=== PATIENT | male | born 1970 | race Caucasian/White ===

== ENCOUNTER 2016-09-27 13:58 | Emergency (ER) | payer BC ==
[~2016-09-27] VITALS: Ht 172.7 cm; Wt 122.0 kg
[~2016-09-27 13:58] MED LIST: ALBU1AER9 INH; ALLO300T2 PO; DIPH1TAB PO; LISI-725 PO; MONT1TAB3 PO; MULT-513 PO; POTA1080 PO
[2016-09-27 14:09] VITALS: TEMP 36.3; Ht 172.7 cm; Wt 122.0 kg
[2016-09-27] MEDS ORDERED: SODIUM CHLORIDE 0.9% 1000ML 1,000 ML IV STA ×2 (14:33)
[2016-09-27] MEDS ORDERED: ONDANSETRON INJ 2 MG/ML 2 ML VIAL IV STA (14:33)
[2016-09-27] MEDS ORDERED: KETOROLAC TROMETHAMINE 30 MG/ML VIAL IV STA (14:33)
[2016-09-27 14:41] LABS: BASO % 1.2 %; BASO ABS # 0.13 K/uL (0-0.2); COMPLETE YES; EOS % 4.3 %; HEMATOCRIT 44.6 % (42-52); IG% 0.2 %; LYMPH % 14.2 %; LYMPH ABS # 1.57 K/uL (1.2-3.4); MEAN CELL VOLUME 92.1 fL (80-100); MEAN CORPUSCULAR HEMOGLOBIN 32.9 pg (25-34); MEAN CORPUSCULAR HGB CONC 35.7 g/dl (32-36); MEAN PLATELET VOLUME 9.5 fL (7.4-10.4); MONO % 8.1 %; PLATELET COUNT 222 K/uL (130-400); RED BLOOD COUNT 4.84 M/uL (4.7-6.1); WHITE BLOOD COUNT 11.04 K/uL (4.8-10.8)
--- NOTE | 2016-09-27 14:41 | EMERGENCY ROOM VISIT NOTE ---
History Report prepared by Dmitry: Jose Guadalupe Alva Under the Supervision of: Dr. Rick Garrido D.O. First contact with patient: 14:25 Chief Complaint: KIDNEY STONE Stated Complaint: POSSIBLE KIDNEY STONE History of Present Illness The patient is a 45 year old male who presents to the Emergency Room with complaints of persistent left flank pain since 0600 this morning. The pain is consistent with past kidney stones, and is rated 10/10 in severity. The patient' s last stone was last year. The patient follows up with Dr. Hassan, who he hasn' t seen in approximately 6 months. The patient has had stents for his kidney stones before, but he usually passes the stones on his own. The patient had lithotripsy approximately five months ago, and has been taking his leftover pain medication for his flank pain. Source of History: patient Onset: 0600 this morning Position: back (left flank) Symptom Intensity: 10/10 Quality: other (kidney stone) Timing: other (persistent) Review of Systems See HPI for pertinent positives & negatives. A total of 10 systems reviewed and were otherwise negative. Past Medical & Surgical Medical Problems: (1) Asthma (2) HTN (hypertension) Surgical Problems: (1) H/O colostomy Family History Cancer Heart disease Hypertension Kidney stones Social History Smoking Status: Never Smoker Drug Use: none Marital Status: Housing Status: lives with family Occupation Status: employed Current/Historical Medications Scheduled Allopurinol (Zyloprim), 300 MG PO QAM Lisinopril (Zestril), 20 MG PO QAM Montelukast Sodium (Singulair), 10 MG PO QAM Multivitamins/Minerals (Mvi With Minerals), 1 TAB PO QAM Potassium Citrate (Alkalinizer (Potassium Citrate ER), 1,080 MG PO QAM Tamsulosin Hcl (Flomax), 0.4 MG PO DAILY Scheduled PRN Albuterol (Proair Hfa), 2 PUFFS INH DAILY PRN for Shortness of Breath Diphenhydramine Hcl (Benadryl Allergy), 1 CAP PO QAM PRN for ALLERGIC REACTION Oxycodone Immediate Rel Tab (Roxicodone Ir), 1-2 TAB PO Q4H PRN for Severe Pain Allergies Coded Allergies: Morphine (Verified Allergy, Intermediate, itchy anxious, 09/27/16) Physical Exam Vital Signs Date Time Temp Pulse Resp B/P Pulse Ox O2 Delivery O2 Flow Rate FiO2 09/27/16 17:32 77 20 147/78 98 Room Air 09/27/16 15:19 69 20 154/82 99 Room Air 09/27/16 14:09 36.3 50 18 149/91 99 Room Air Physical Exam GENERAL: Patient is awake, alert, very anxious, appears to be uncomfortable. EYES: The conjunctivae are clear. The pupils are round and reactive. EARS, NOSE, MOUTH AND THROAT: The nose is without any evidence of any deformity. Mucous membranes are moist tongue is midline NECK: The neck is nontender and supple. RESPIRATORY: Normal respiratory effort is noted there is no evidence of wheezing rhonchi or rales CARDIOVASCULAR: Regular rate and rhythm noted there no murmurs rubs or gallops normal S1 normal S2 GASTROINTESTINAL: The abdomen is soft. Bowel sounds are present in all quadrants. Abdomen is nontender BACK: Left CVA tenderness to percussion, no midline tenderness appreciated. MUSCULOSKELETAL/EXTREMITIES: There is no evidence of gross deformity full range of motion is noted in the hips and shoulders SKIN: There is no obvious evidence of any rash. There are no petechiae, pallor or cyanosis noted. NEUROLOGIC: Patient is awake alert and oriented x3. Medical Decision & Procedures ER Provider Diagnostic Interpretation: X ray results and stated below per my interpretation and radiology interpretation. Other radiology results per my review and radiologist interpretation: KUB CLINICAL HISTORY: ABDOMINAL PAIN/GI pain. Nausea. COMPARISON STUDY: 03/04/2016 FINDINGS: Small 3 mm calcification to the left of the L3 vertebral body possibly at the lower pole left kidney. Renal and psoas shows otherwise are unremarkable. Bowel pattern is nonobstructive. IMPRESSION: Left lower pole renal calcification versus proximal left ureteral calculus. Otherwise negative study Electronically signed by: Javier Larios M.D. 09/27/2016 4:54 PM Dictated Date/Time: 09/27/2016 4:53 PM RENAL ULTRASOUND HISTORY: Flank pain left flank pain COMPARISON: 03/27/2014 FINDINGS: Right kidney: Maximum dimension 13 cm. No evidence for hydronephrosis. 6 mm nonobstructing calcification lower pole. Normal corticomedullary differentiation and cortical thickness. Left kidney: Maximum dimension 13 cm. Slight fullness left renal collecting system. Normal corticomedullary differentiation and cortical thickness. Bladder: No bladder wall thickening. The bilateral ureteral jets were identified. IMPRESSION: 1. Slight fullness left renal collecting system unchanged from prior exam. 2. Nonobstructing mid to lower pole right renal calcification. Electronically signed by: Javier Larios M.D. 09/27/2016 4:46 PM Dictated Date/Time: 09/27/2016 4:44 PM Laboratory Results 09/27/16 14:20 Red Blood Count 4.84, Mean Corpuscular Volume 92.1, Mean Corpuscular Hemoglobin 32.9, Mean Corpuscular Hemoglobin Concent 35.7, Mean Platelet Volume 9.5, Neutrophils (%) (Auto) 72.0, Lymphocytes (%) (Auto) 14.2, Monocytes (%) (Auto) 8.1, Eosinophils (%) (Auto) 4.3, Basophils (%) (Auto) 1.2, Neutrophils # (Auto) 7.95, Lymphocytes # (Auto) 1.57, Monocytes # (Auto) 0.89, Eosinophils # (Auto) 0.48, Basophils # (Auto) 0.13 09/27/16 14:20 Test 09/27/16 14:20 09/27/16 16:15 White Blood Count 11.04 K/uL (4.8-10.8) Red Blood Count 4.84 M/uL (4.7-6.1) Hemoglobin 15.9 g/dL (14.0-18.0) Hematocrit 44.6 % (42-52) Mean Corpuscular Volume 92.1 fL (80-100) Mean Corpuscular Hemoglobin 32.9 pg (25-34) Mean Corpuscular Hemoglobin Concent 35.7 g/dl (32-36) Platelet Count 222 K/uL (130-400) Mean Platelet Volume 9.5 fL (7.4-10.4) Neutrophils (%) (Auto) 72.0 % Lymphocytes (%) (Auto) 14.2 % Monocytes (%) (Auto) 8.1 % Eosinophils (%) (Auto) 4.3 % Basophils (%) (Auto) 1.2 % Neutrophils # (Auto) 7.95 K/uL (1.4-6.5) Lymphocytes # (Auto) 1.57 K/uL (1.2-3.4) Monocytes # (Auto) 0.89 K/uL (0.11-0.59) Eosinophils # (Auto) 0.48 K/uL (0-0.5) Basophils # (Auto) 0.13 K/uL (0-0.2) RDW Standard Deviation 42.8 fL (36.4-46.3) RDW Coefficient of Variation 12.8 % (11.5-14.5) Immature Granulocyte % (Auto) 0.2 % Immature Granulocyte # (Auto) 0.02 K/uL (0.00-0.02) Anion Gap 11.0 mmol/L (3-11) Est Creatinine Clear Calc Drug Dose 71.2 ml/min Estimated GFR () 56.0 Estimated GFR (Non- 48.3 BUN/Creatinine Ratio 10.8 (10-20) Calcium Level 9.1 mg/dl (8.5-10.1) Total Bilirubin 0.8 mg/dl (0.2-1) Direct Bilirubin 0.1 mg/dl (0-0.2) Aspartate Amino Transf (AST/SGOT) 34 U/L (15-37) Alanine Aminotransferase (ALT/SGPT) 59 U/L (12-78) Alkaline Phosphatase 49 U/L (45-117) Total Protein 8.0 gm/dl (6.4-8.2) Albumin 4.2 gm/dl (3.4-5.0) Lipase 245 U/L (73-393) Urine Color YELLOW Urine Appearance CLEAR (CLEAR) Urine pH 7.5 (4.5-7.5) Urine Specific [place] 1.020 (1.000-1.030) Urine Protein NEG (NEG) Urine Glucose (UA) NEG (NEG) Urine Ketones NEG (NEG) Urine Occult Blood TRACE (NEG) Urine Nitrite NEG (NEG) Urine Bilirubin NEG (NEG) Urine Urobilinogen NEG (NEG) Urine Leukocyte Esterase NEG (NEG) Urine WBC (Auto) 1-5 /hpf (0-5) Urine RBC (Auto) 0-4 /hpf (0-4) Urine Hyaline Casts (Auto) 1-5 /lpf (0-5) Urine Epithelial Cells (Auto) 5-10 /lpf (0-5) Urine Bacteria (Auto) NEG (NEG) Laboratory results per my review. Medications Administered Medications (Trade) Dose Ordered Sig/Dave Route Start Time Stop Time Status Last Admin Dose Admin Sodium Chloride 1,000 ml @ 999 mls/hr Q1H1M STAT IV 09/27/16 14:33 09/27/16 15:33 DC 09/27/16 14:33 999 MLS/HR Sodium Chloride (Nss 1000ml) 1,000 ml @ 125 mls/hr Q8H STAT IV 09/27/16 14:33 09/27/16 18:09 DC 09/27/16 15:20 125 MLS/HR Ondansetron HCl (Zofran Inj) 4 mg NOW STAT IV 09/27/16 14:33 09/27/16 14:36 DC 09/27/16 15:07 4 MG Ketorolac Tromethamine (Toradol Inj) 30 mg NOW STAT IV 09/27/16 14:33 09/27/16 14:36 DC 09/27/16 15:08 30 MG Tamsulosin HCl (Flomax Cap) 0.4 mg NOW ONCE PO 09/27/16 14:45 09/27/16 14:46 DC 09/27/16 15:07 0.4 MG Fentanyl Citrate (Fentanyl Inj) 100 mcg Q20M PRN IV 09/27/16 14:45 09/27/16 18:09 DC 09/27/16 17:29 100 MCG Ondansetron HCl (ZOFRAN ODT 4MG Home Pack) 1 homepack UD ONCE PO 09/27/16 17:15 09/27/16 17:16 DC 09/27/16 17:24 1 HOMEPACK Oxycodone HCl (Roxicodone Immediate Rel 5MG Home Pack) 1 homepack UD ONCE PO 09/27/16 17:15 09/27/16 17:16 DC 09/27/16 17:23 1 HOMEPACK ED Course 1432: The patient was evaluated in room B10. A complete history and physical examination were performed. 1433: Toradol 30 mg IV, Zofran 4 mg IV, NSS 1000 ml @ 125 mls/hr, NSS 1000 ml @ 999 mls/hr. 1445: Fentanyl 100 mcg IV, Flomax 0.4 mg IV. 1710: Reassessed the patient. Discussed the findings wit him. He verbalized understanding and agreement. The patient is ready for discharge. 1715: Zofran Odt 4 mg PO homepack, Oxycodone IR 5 mg PO homepack. Medical Decision Etiologies such as renal colic, appendicitis, diverticulitis, mesenteric ischemia, aortic pathology, infections, inflammatory bowel disease, PUD, biliary pathology, UTI, as well as others were entertained. Nursing notes reviewed. Patient's previous electronic medical records were reviewed. The patient is a 45-year-old male who presented to the emergency department with acute left flank pain. The patient is a history of renal colic and states that his symptoms feel similar to previous episodes of renal colic. He has been treated with stenting as well as lithotripsy in the past. The patient was treated with IV fluids IV pain medicine and IV antiemetics. On subsequent reevaluation he was feeling much better. The patient's x-ray did not show a definite ureteral calculus but a possible proximal left ureteral calculus. His ultrasound was not suggestive of a high-grade hydronephrosis. He was feeling much better on subsequent reevaluation and he was encouraged to rest and it avoid any strenuous activity. He was encouraged to call his primary urologist to schedule a follow-up appointment. He was also encouraged to continue all medications as prescribed and return to the emergency department immediately if symptoms change worsen or need arises. Impression Primary Impression: Renal colic Additional Impression: Left flank pain Scribe Attestation The scribe's documentation has been prepared under my direction and personally reviewed by me in its entirety. I confirm that the note above accurately reflects all work, treatment, procedures, and medical decision making performed by me. Departure Information Dispostion Home / Self-Care Prescriptions Tamsulosin Hcl (FLOMAX) 0.4 Mg Cap 0.4 MG PO DAILY, #10 CAP Prov: Rick Garrido, DO 09/27/16 Oxycodone Immediate Rel Tab (ROXICODONE IR) 5 Mg Tab 1-2 TAB PO Q4H Y for Severe Pain, #24 TAB Prov: Rick Garrido, DO 09/27/16 Referrals RV. Gannon MD (PCP) Forms HOME CARE DOCUMENTATION FORM, IMPORTANT VISIT INFORMATION, Work Instructions Patient Instructions Kidney Stones, My [facility] Additional Instructions Drink plenty clear liquids. Continue all medications as prescribed. I would recommend a recheck of your laboratory studies because her creatinine was elevated today in the emergency department. Follow-up with your urologist this week for reevaluation. Problem Qualifiers
[2016-09-27] MEDS ORDERED: TAMSULOSIN HCL 0.4 MG CAP PO ONE (14:45)
[2016-09-27 14:49] LABS: BUN/CREATININE RATIO 10.8 (10-20); CALCIUM 9.1 mg/dl (8.5-10.1); CREATININE 1.7 mg/dl (0.60-1.40); POTASSIUM 4.2 mmol/L (3.5-5.1)
[2016-09-27] MEDS: FENTANYL CITRATE INJ 50 MCG/1 ML 2 ML VIAL IV PRN ×2 (15:08→17:29)
--- NOTE | 2016-09-27 16:47 | DIAGNOSTIC IMAGING REPORT ---
RENAL ULTRASOUND HISTORY: Flank pain left flank pain COMPARISON: 03/27/2014 FINDINGS: Right kidney: Maximum dimension 13 cm. No evidence for hydronephrosis. 6 mm nonobstructing calcification lower pole. Normal corticomedullary differentiation and cortical thickness. Left kidney: Maximum dimension 13 cm. Slight fullness left renal collecting system. Normal corticomedullary differentiation and cortical thickness. Bladder: No bladder wall thickening. The bilateral ureteral jets were identified. IMPRESSION: 1. Slight fullness left renal collecting system unchanged from prior exam. 2. Nonobstructing mid to lower pole right renal calcification. Electronically signed by: Javier Larios M.D. 09/27/2016 4:46 PM Dictated Date/Time: 09/27/2016 4:44 PM
[2016-09-27 16:50] LABS: URINE APPEARANCE CLEAR (CLEAR); URINE BILIRUBIN NEG (NEG); URINE COLOR YELLOW; URINE NITRITE NEG (NEG); URINE PH 7.5 (4.5-7.5); UROBILINOGEN NEG (NEG)
[2016-09-27 16:51] LABS: MANUAL MICROSCOPIC REQUIRED? NO; REVIEW REQ? NO
--- NOTE | 2016-09-27 16:55 | DIAGNOSTIC IMAGING REPORT ---
KUB CLINICAL HISTORY: ABDOMINAL PAIN/GI pain. Nausea. COMPARISON STUDY: 03/04/2016 FINDINGS: Small 3 mm calcification to the left of the L3 vertebral body possibly at the lower pole left kidney. Renal and psoas shows otherwise are unremarkable. Bowel pattern is nonobstructive. IMPRESSION: Left lower pole renal calcification versus proximal left ureteral calculus. Otherwise negative study Electronically signed by: Javier Larios M.D. 09/27/2016 4:54 PM Dictated Date/Time: 09/27/2016 4:53 PM
[2016-09-27] MEDS ORDERED: OXYC1TAB3 PO (17:05)
[2016-09-27] MEDS ORDERED: TAMS0.4C38 PO (17:05)
[2016-09-27] MEDS ORDERED: ONDANSETRON HOME PACK 4MG OD TAB PO ONE (17:15)
[2016-09-27] MEDS ORDERED: OXYCODONE IR HOME PACK PO ONE (17:15)
[2016-09-27 17:32] VITALS: BP 147/78; PULSE 77; O2SAT 98
[2016-10-02] MEDS ORDERED: TAMS0.4C38 PO (13:04)
[2016-10-03] MEDS ORDERED: OXYC-57 PO (08:16)
== END 2016-09-27 17:46 | disposition home or self-care (01) ==
LOC: C.EDB 13:59
DX: N23 Unspecified renal colic (principal); J45.909 Unspecified asthma, uncomplicated; I10 Essential (primary) hypertension; Z79.899 Other long term (current) drug therapy

== ENCOUNTER → 2016-09-30 | Outpatient (CLI) | payer BC ==
[~2016-09-30] MED LIST changes: +OXYC-57 PO; +OXYC1TAB3 PO; +TAMS0.4C38 PO
== END | disposition home or self-care (01) ==
LOC: C.LABSPEC 10:32
PROVIDERS: ATTEND Urology
DX: N20.0 Calculus of kidney (principal)

== ENCOUNTER → 2016-10-03 | Day surgery (SDC) | payer BC ==
[2016-10-02 13:04] VITALS: Ht 172.7 cm; Wt 118.2 kg
--- NOTE | 2016-10-02 14:08 | DIAGNOSTIC IMAGING REPORT ---
KUB CLINICAL HISTORY: Nephrolithiasis. COMPARISON STUDY: KUB September 27, 2016. FINDINGS: Bowel gas pattern is normal. A 4 mm calculus lateral to left transverse process of L3 is similar in position to prior exam of September 27, 2016. There may be a punctate right renal calculus. No additional ureteral calculi are identified. IMPRESSION: No change in position of a 4 mm left-sided calculus, possibly at the left ureteropelvic junction Electronically signed by: Irvin Rider M.D. 10/02/2016 2:06 PM Dictated Date/Time: 10/02/2016 2:04 PM
[~2016-10-03] VITALS: Ht 172.7 cm; Wt 118.2 kg
[~2016-10-03] MED LIST changes: +ATROPINE SULFATE 0.1 MG/ML 5ML SYR IV PRN; +CIPROFLOXACIN 400MG / D5W IV SCH; +DEXAMETHASONE SOD INJ 4 MG/ML VIAL ONE; +EpHEDrine SULFATE INJ 50 MG/ML AMP IV PRN; +FENTANYL CITRATE INJ 50 MCG/1 ML 2 ML VIAL ONE; +HYDROmorphone INJ 1 MG/ML SYR ONE; +HYDROmorphone INJ 2 MG/ML SYR/VIAL IV PRN; +LABETALOL HCL IV 5 MG/ML 20ML IV PRN; +LIDOCAINE HCL 2% 2 ML VIAL (20MG/ML) ONE; +MIDAZOLAM HCL 1 MG/ML 2ML VIAL ONE; +NALOXONE HCL 0.4 MG/1 ML VIAL/CARP IV PRN; +ONDANSETRON INJ 2 MG/ML 2 ML VIAL IV PRN; +ONDANSETRON INJ 2 MG/ML 2 ML VIAL ONE; +OXYCODONE/ACETAMINOPHEN 5-325 TAB PO PRN; +PROMETHAZINE HCL INJ 12.5 MG in SODIUM CHLORIDE 0.9% 50ML 50 ML IV PRN; +PROPOFOL IV EMULSION 10 MG/ML 20 ML VIAL IV ONE
[2016-10-03] MEDS: LACTATED RINGER'S 1000ML 1,000 ML IV SCH ×2 (06:56→09:10)
--- NOTE | 2016-10-03 07:01 | History & Physical Bridge Note ---
H&P Re-Evaluation Bridge Note: I have examined the patient, reviewed the History & Physical and in the interval since the performance of the History & Physical I have noted the following changes of clinical significance: No changes noted
--- NOTE | 2016-10-03 08:15 | [facility] Post Operative Brief Note ---
Immediate Operative Summary Operative Date Oct 03, 2016. Pre-Operative Diagnosis Left ureteral stone Post-Operative Diagnosis same Procedure(s) Performed Left Extracorporeal Shock Wave Lithotripsy--ureteral Surgeon Dr Thapa Dental Assisting Instructor Surgeon(s) 0 Estimated Blood Loss 0 Findings left upj stone Specimens 0
--- NOTE | 2016-10-03 08:18 | Discharge Instructions-SurgCtr ---
Discharge Instructions Visit Reason for Visit: Stones;Nephrolithiasis N20.0 Discharge Discharge Diagnosis / Problem: stone Discharge Goals Goal(s): Therapeutic intervention Activity Recommendations Activity Limitations: resume your previous activity (take it easy today) Anesthesia . Post Anesthesia Instructions: If you have had General Anesthesia or IV Sedation: * Do not drive today. * Resume driving when surgeon permits. * Do not make important decisions or sign legal documents today. * Call surgeon for: 1. Temperature elevations greater than 101 degrees F. 2. Uncontrollable pain. 3. Excessive bleeding. 4. Persistent nausea and vomiting. 5. Medication intolerance (nausea, vomiting or rash). * For nausea and vomiting use only clear liquids such as: tea, soda, bouillon until nausea subsides, then gradually increase diet as tolerated. * If you have any concerns or questions, call your surgeon's office. If physician is unavailable and it is an emergency, call 911 or go to the nearest emergency room. . Instructions / Follow-Up Instructions / Follow-Up MEDICATIONS: Resume previous medications unless instructed otherwise by your surgeon. Resume pre-ESWL medication except for aspirin, coumadin or other blood thinners. __ Toradol 10 mg every 6 hours for initial pain. __ Lortab 5 mg 1-2 every 4 hours for pain. _x_ Percocet 5 mg 1-2 every 4 hours for pain. __ Macrodantin 50 mg x 3 a day. __ Flomax 1 tab daily one half (1/2) hour after supper. SPECIAL CARE INSTRUCTIONS: 1. Get KUB (x-ray) _x_ day before or day of office visit and bring x-ray to office __ get x-ray 2 days before and tell office you are getting x-rays when you call for the appointment. 2. Strain ALL urine. 3. Please call if you have a fever, chills, severe pain, or constant dribbling of urine. 4. Office phone number . FOLLOW UP VISIT: Please call the office to schedule a follow-up appointment at . Diet Recommendations Home Diet: resume previous diet Procedures Procedures Performed: Left Extracorporeal Shock Wave Lithotripsy--ureteral Pending Studies Studies pending at discharge: no Medical Emergencies . Who to Call and When: Medical Emergencies: If at any time you feel your situation is an emergency, please call 911 immediately. . Non-Emergent Contact Non-Emergency issues call your: Urologist . . "Provider Documentation" section prepared by Farrukh Thapa. [facility] Monitoring [facility] Search Results: patient reviewed within database
[2016-10-03] MEDS: FENTANYL CITRATE INJ 50 MCG/1 ML 2 ML VIAL IV PRN ×4 (09:16→09:33)
[2016-10-03 10:14] VITALS: TEMP 36.6
--- NOTE | 2016-10-03 10:17 | Anesthesia Progress Nt - [facility] ---
Anesthesia Post Op Note Date & Time Oct 03, 2016 at 10:18 Vital Signs Pain Intensity: 2 Vital Signs Past 12 Hours Date Time Temp Pulse Resp B/P Pulse Ox O2 Delivery O2 Flow Rate FiO2 10/03/16 10:14 36.6 64 16 129/81 95 Room Air 10/03/16 10:03 36.4 134/80 10/03/16 10:02 80 15 99 10/03/16 10:02 78 15 10/03/16 09:58 118/76 10/03/16 09:57 88 9 10/03/16 09:57 94 9 91 10/03/16 09:53 125/72 10/03/16 09:52 94 26 10/03/16 09:52 95 26 96 10/03/16 09:48 123/77 10/03/16 09:47 84 14 10/03/16 09:47 80 14 96 10/03/16 09:43 119/81 10/03/16 09:42 83 13 10/03/16 09:42 82 13 96 10/03/16 09:38 114/68 10/03/16 09:37 81 14 94 10/03/16 09:37 79 14 10/03/16 09:33 111/76 10/03/16 09:32 80 11 10/03/16 09:32 79 11 97 10/03/16 09:28 146/91 10/03/16 09:27 81 13 10/03/16 09:27 79 13 97 10/03/16 09:23 139/92 10/03/16 09:22 69 14 10/03/16 09:22 72 14 95 10/03/16 09:18 130/86 10/03/16 09:17 68 10 10/03/16 09:17 67 10 97 10/03/16 09:13 136/93 10/03/16 09:12 73 15 96 10/03/16 09:12 72 15 10/03/16 09:08 142/89 10/03/16 09:07 74 14 93 10/03/16 09:07 76 14 10/03/16 09:03 122/94 10/03/16 09:02 77 17 99 10/03/16 09:02 78 17 10/03/16 08:58 135/88 10/03/16 08:57 79 12 98 10/03/16 08:57 80 12 10/03/16 08:53 136/89 10/03/16 08:52 83 14 10/03/16 08:52 83 14 99 10/03/16 08:48 136/93 10/03/16 08:47 36.7 100 16 128/82 95 Room Air 10/03/16 08:47 98 9 98 10/03/16 08:47 96 9 10/03/16 06:28 36.9 81 18 120/81 95 Room Air Notes Mental Status: alert / awake / arousable, participated in evaluation Pt Amnestic to Procedure: Yes Nausea / Vomiting: adequately controlled Pain: adequately controlled Airway Patency, RR, SpO2: stable & adequate BP & HR: stable & adequate Hydration State: stable & adequate Anesthetic Complications: no major complications apparent
[2016-10-03 10:39] VITALS: BP 126/79; PULSE 65; O2SAT 95
--- NOTE | 2016-10-07 18:52 | OPERATIVE REPORT ---
DATE OF OPERATION: 10/03/2016 PREOPERATIVE DIAGNOSIS: Left ureteral calculus. POSTOPERATIVE DIAGNOSIS: Same. PROCEDURE: Extracorporeal shockwave lithotripsy. FINDINGS: KUB showed stone left ureter. SURGEON: Dr. Thapa. ANESTHESIA: General. DRAINS: None. COMPLICATIONS: None. SPECIMENS: None. INDICATIONS: The patient is a 45-year-old white male with a left ureteral stone, being brought in for ESWL. DETAILS OF PROCEDURE: The patient was brought to the litho suite. He was correctly identified and the stone was visualized on his most recent x-rays. After the correct time out was performed the patient was positioned over the therapy head. An adequate level of anesthesia was administered. The extracorporeal shockwave lithotripsy treatment was then commenced. Please see the [place] [facility] sheet for complete treatment summary. After completion of the procedure the patient was taken to the recovery room in stable condition. I attest to the content of the Intraoperative Record and any orders documented therein. Any exceptio ns are noted below.
== END | disposition home or self-care (01) ==
LOC: X.SURG 06:09
PROVIDERS: ATTEND Urology
DX: N20.1 Calculus of ureter (principal); F32.9 Major depressive disorder, single episode, unspecified; E78.00 Pure hypercholesterolemia, unspecified; I10 Essential (primary) hypertension; E66.01 Morbid (severe) obesity due to excess calories; Z90.49 Acquired absence of other specified parts of digestive tract; Z88.5 Allergy status to narcotic agent; Z82.49 Family history of ischemic heart disease and other diseases of the circulatory system; Z80.0 Family history of malignant neoplasm of digestive organs

== ENCOUNTER → 2016-10-14 | Outpatient (CLI) | payer BC ==
[~2016-10-14] MED LIST changes: -ATROPINE SULFATE 0.1 MG/ML 5ML SYR IV PRN; -CIPROFLOXACIN 400MG / D5W IV SCH; -DEXAMETHASONE SOD INJ 4 MG/ML VIAL ONE; -EpHEDrine SULFATE INJ 50 MG/ML AMP IV PRN; -FENTANYL CITRATE INJ 50 MCG/1 ML 2 ML VIAL ONE; -HYDROmorphone INJ 1 MG/ML SYR ONE; -HYDROmorphone INJ 2 MG/ML SYR/VIAL IV PRN; -LABETALOL HCL IV 5 MG/ML 20ML IV PRN; -LIDOCAINE HCL 2% 2 ML VIAL (20MG/ML) ONE; -MIDAZOLAM HCL 1 MG/ML 2ML VIAL ONE; -NALOXONE HCL 0.4 MG/1 ML VIAL/CARP IV PRN; -ONDANSETRON INJ 2 MG/ML 2 ML VIAL IV PRN; -ONDANSETRON INJ 2 MG/ML 2 ML VIAL ONE; -OXYCODONE/ACETAMINOPHEN 5-325 TAB PO PRN; -PROMETHAZINE HCL INJ 12.5 MG in SODIUM CHLORIDE 0.9% 50ML 50 ML IV PRN; -PROPOFOL IV EMULSION 10 MG/ML 20 ML VIAL IV ONE
--- NOTE | 2016-10-14 12:13 | DIAGNOSTIC IMAGING REPORT ---
KUB CLINICAL HISTORY: Nephrolithiasis. COMPARISON STUDY: KUB October 02, 2016. FINDINGS: The 4 mm left ureteral calculus shown on exam of October 02, 2016 is not identified on this exam. A 2 mm round density within left hemipelvis is noted. There are possible bilateral renal calculi. Bowel gas pattern is normal. IMPRESSION: 1. The left ureteral calculus shown on prior exam is not visualized on this study. A 2 mm left pelvic density is probably artifactual. A small distal left ureteral calculus or fragment could appear similar although is considered less likely. 2. Suspected bilateral nephrolithiasis. Electronically signed by: Irvin Rider M.D. 10/14/2016 12:12 PM Dictated Date/Time: 10/14/2016 12:09 PM
== END | disposition home or self-care (01) ==
LOC: C.RAD 11:22
PROVIDERS: ATTEND Urology
DX: N20.0 Calculus of kidney (principal)

== ENCOUNTER → 2016-12-30 | Outpatient (CLI) | payer BC ==
[2016-12-30 13:06] LABS: ALT/SGPT 58 U/L (12-78); AST/SGOT 22 U/L (15-37); BLOOD UREA NITROGEN 15 mg/dl (7-18); BUN/CREATININE RATIO 12.5 (10-20); CARBON DIOXIDE 25 mmol/L (21-32); CHLORIDE 106 mmol/L (98-107); GLUCOSE 98 mg/dl (70-99); POTASSIUM 4.2 mmol/L (3.5-5.1); SODIUM 139 mmol/L (136-145)
[2016-12-30 13:10] LABS: ALB/GLOB RATIO 1.1 (0.9-2); ALKALINE PHOSPHATASE 46 U/L (45-117); CHOLESTEROL 155 mg/dl (0-200); CHOLESTEROL/HDL RATIO 4.8; HDL CHOLESTEROL 32 mg/dl; LDL CHOLESTEROL CALCULATED 82 mg/dl; TRIGLYCERIDES 206 mg/dl (0-150); VERY LOW DENSITY LIPOPROT CALC 41 mg/dl
--- NOTE | 2017-02-06 11:27 | CODING QUERY NO DIAGNOSIS ---
TREATMENT RENDERED WITHOUT A DIAGNOSIS To promote full compliance with coding requirements relating to patient care, physician participation is requested in all cases of director of undergraduate admissions uncertainty. Please assist us with providing a diagnosis/symptom for the test(s) below: A diagnosis/symptom was not documented on your Order. A valid diagnosis/symptom is required to bill all insurances. Please remember that we are unable to code a diagnosis of rule out, probable, possible, questionable, or suspected. Tests that require a diagnosis: DOS 12/30 * CMP DIAGNOSIS: * Lipids DIAGNOSIS: * Testosterone DIAGNOSIS: Provider Signature: Date: Thank you Karol Leone Health Information Management Once completed, please kindly fax back to [phone] For questions please call [phone]
== END | disposition home or self-care (01) ==
LOC: C.LAB1850 08:50
PROVIDERS: ATTEND Internal Medicine
DX: Z01.89 Encounter for other specified special examinations (principal)

== ENCOUNTER → 2017-01-09 | Outpatient (CLI) | payer BC ==
[~2017-01-09] MED LIST changes: -DIPH1TAB PO; +DIPH1TAB87 PO; +POTA10CA28 PO; +VNTHFA/IN INH
== END | disposition home or self-care (01) ==
LOC: C.LAB1850 09:16
PROVIDERS: ATTEND Internal Medicine
DX: R53.83 Other fatigue (principal)

== ENCOUNTER → 2017-05-19 | Outpatient (CLI) | payer BC ==
[~2017-05-19] MED LIST changes: +DIPH1TAB PO; -DIPH1TAB87 PO; -OXYC-57 PO; -OXYC1TAB3 PO; -POTA10CA28 PO; -VNTHFA/IN INH
--- NOTE | 2017-05-19 10:23 | DIAGNOSTIC IMAGING REPORT ---
KUB HISTORY: Follow-up study to assess kidney stones. N20.0 [id number] COMPARISON: KUB 10/14/2016 FINDINGS: The bowel gas pattern is non-obstructive. There is no organomegaly. Bilateral nephrolithiasis redemonstrated. Findings appear similar from comparison. No calculi are seen along the course of either ureter. The previously noted 2 mm calcification within the left hemipelvis is again noted suggesting phlebolith. No pneumoperitoneum or pneumatosis. No fracture. IMPRESSION: 1. Bilateral nephrolithiasis redemonstrated. No ureteral calculi identified. Electronically signed by: Bernardo Haque M.D. 05/19/2017 10:21 AM Dictated Date/Time: 05/19/2017 10:19 AM
== END | disposition home or self-care (01) ==
LOC: C.RAD 09:43
PROVIDERS: ATTEND Urology
DX: N20.0 Calculus of kidney (principal)

== ENCOUNTER → 2017-07-02 | Outpatient (CLI) | payer BC ==
[~2017-07-02] MED LIST changes: -DIPH1TAB PO; +DIPH1TAB87 PO
[2017-07-02 10:41] LABS: BLOOD UREA NITROGEN 15 mg/dl (7-18); BUN/CREATININE RATIO 12.7 (10-20); CALCIUM 9.3 mg/dl (8.5-10.1); CARBON DIOXIDE 28 mmol/L (21-32); CHLORIDE 104 mmol/L (98-107); CREATININE 1.14 mg/dl (0.60-1.40); GLUCOSE 104 mg/dl (70-99); POTASSIUM 4.2 mmol/L (3.5-5.1); SODIUM 137 mmol/L (136-145)
== END | disposition home or self-care (01) ==
LOC: C.LAB1850 09:14
PROVIDERS: ATTEND Internal Medicine
DX: J45.909 Unspecified asthma, uncomplicated (principal)

== ENCOUNTER → 2017-07-06 | Outpatient (CLI) | payer BC ==
--- NOTE | 2017-07-06 09:30 | DIAGNOSTIC IMAGING REPORT ---
(BARIUM SWALLOW) ESOPHAGUS CLINICAL HISTORY: R13.10 Dysphagia COMPARISON STUDY: None FLUOROSCOPY TIME: 1.1 minutes. NUMBER OF FLUOROSCOPIC IMAGES: 19 FINDINGS: The patient swallowed effervescent granules and barium without difficulty. No aspiration was noted No esophageal masses or ulcerations were visualized. 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 There is a small hiatal hernia. There was reflux. The patient swallowed a one half inch barium tablet which freely passed into the stomach. IMPRESSION: 1. No esophageal masses or strictures identified 2. Small hiatal hernia. Reflux. Electronically signed by: [place] Landin M.D. 07/06/2017 9:28 AM Dictated Date/Time: 07/06/2017 9:26 AM
== END | disposition home or self-care (01) ==
LOC: C.RAD 08:56
PROVIDERS: ATTEND Internal Medicine
DX: R13.10 Dysphagia, unspecified (principal); K44.9 Diaphragmatic hernia without obstruction or gangrene

== ENCOUNTER → 2017-07-08 | Outpatient (CLI) | payer BC ==
--- NOTE | 2017-07-08 08:49 | DIAGNOSTIC IMAGING REPORT ---
THYROID ULTRASOUND CLINICAL HISTORY: Dysphagia. COMPARISON STUDY: None. TECHNIQUE: Sonography of the thyroid gland was performed. FINDINGS: The right thyroid lobe measures 5.3 x 2.1 x 1.4 cm and the left lobe measures 4.5 x 1.9 x 1.6 cm. The thyroid gland is homogeneous. No thyroid nodules are present. The isthmus measures 3 mm in thickness. The soft tissues adjacent to the thyroid gland are normal. IMPRESSION: Normal thyroid ultrasound. No thyroid nodules. Electronically signed by: Irvin Rider M.D. 07/08/2017 8:48 AM Dictated Date/Time: 07/08/2017 8:40 AM
== END | disposition home or self-care (01) ==
LOC: C.ULTR 08:20
PROVIDERS: ATTEND Internal Medicine
DX: R13.10 Dysphagia, unspecified (principal)

== ENCOUNTER → 2017-07-23 | Day surgery (SDC) | payer BC ==
[2017-07-13 07:36] VITALS: Ht 172.7 cm; Wt 122.7 kg
[~2017-07-23] VITALS: Ht 172.7 cm; Wt 122.7 kg
[~2017-07-23] MED LIST changes: -ALBU1AER9 INH; -DIPH1TAB87 PO; +FENTANYL CITRATE INJ 50 MCG/1 ML 2 ML VIAL ONE; +LIDOCAINE HCL 2% 2 ML VIAL (20MG/ML) ONE; -POTA1080 PO; +POTA10CA28 PO; +PROPOFOL IV EMULSION 10 MG/ML 20 ML VIAL IV ONE; +SODIUM CHLORIDE 0.9% 500ML 500 ML IV ONE; -TAMS0.4C38 PO; +VNTHFA/IN INH
--- NOTE | 2017-07-23 13:59 | Endo History and Physical ---
History & Physical Date of Service: Jul 23, 2017. Chief Complaint: Dysphagia Referring Physician: Dr. Gannon History of Present Illness dysphagia Past Medical History Asthma, Gastrointestinal Disorder, Anxiety, Reflux, Hypertension Past Surgical History Hx Cardiac Surgery: No Hx Internal Defibrillator: No Hx Pacemaker: No Hx Abdominal Surgery: Yes (COLECTOMY/COLOSTOMY AND REVERSAL, ABDOMINAL HERNIA) Hx Post-Op Nausea and Vomiting: Yes Hx Cancer Surgery: No Hx Thoracic Surgery: No Hx Orthopedic: No Hx Urinary Tract Surgery: Yes (CYSTO WITH STENT INSERTION, LITHORTRIPSY ( MULTIPLES) ) Family History None Social History Smoking Status: Never Smoker Hx Substance Use: No Hx Alcohol Use: Yes (RARELY) Allergies Coded Allergies: Morphine (Verified Allergy, Intermediate, itchy anxious, 07/13/17) Current Medications Reported Home Medications Medications Dose Route/Sig Max Daily Dose Days Date Category Ventolin Hfa (Albuterol) 200 Puffs/64614 Mcg Aers 2-4 Puffs INH Q6H PRN 07/13/17 Reported Micro-K Ext Rel (Potassium Chloride) 10 Meq Capcr 10 Meq PO QAM 07/13/17 Reported Mvi With Minerals (Multivitamins/Minerals) Tab 1 Tab PO QAM 09/26/13 Reported Singulair (Montelukast Sodium) 10 Mg Tab 10 Mg PO QAM 07/09/13 Reported Zestril (Lisinopril) 20 Mg Tab 20 Mg PO QAM 07/09/13 Reported Zyloprim (Allopurinol) 300 Mg Tab 300 Mg PO QAM 07/09/13 Reported Vital Signs Weight (Kilograms): 122.73 Height (Feet): 5 Height (Inches): 8 Date Time Temp Pulse Resp B/P (MAP) Pulse Ox O2 Delivery O2 Flow Rate FiO2 07/23/17 13:41 36.9 64 12 111/64 (80) 95 Room Air Physical Exam General Appearance: WD/WN, no apparent distress Respiratory/Chest: Auscultation: breath sounds normal Cardiovascular: Heart Auscultation: RRR Abdomen: Bowel Sounds: normal Inspection & Palpation: soft, non-distended, no tenderness, guarding & rebound Assessment and Plan EGD
--- NOTE | 2017-07-23 14:44 | GI REPORT ---
Procedure Date: 07/23/2017 1:58 PM Procedure: Upper GI endoscopy Indications: Esophageal dysphagia Medicines: Propofol per Anesthesia Complications: No immediate complications. Estimated blood loss: Minimal. Estimated Blood Loss: Estimated blood loss was minimal. Procedure: Pre-Anesthesia Assessment: - Prior to the procedure, a History and Physical was performed, and patient medications and allergies were reviewed. The patient's tolerance of previous anesthesia was also reviewed. The risks and benefits of the procedure and the sedation options and risks were discussed with the patient. All questions were answered, and informed consent was obtained. Prior Anticoagulants: The patient has taken no previous anticoagulant or antiplatelet agents. ASA Grade Assessment: II - A patient with mild systemic disease. After reviewing the risks and benefits, the patient was deemed in satisfactory condition to undergo the procedure. After obtaining informed consent, the endoscope was passed under direct vision. Throughout the procedure, the patient's blood pressure, pulse, and oxygen saturations were monitored continuously. The scope was introduced through the mouth, and advanced to the second part of duodenum. The upper GI endoscopy was accomplished without difficulty. The patient tolerated the procedure well. Findings: Mucosal changes including feline appearance and longitudinal furrows were found in the upper third of the esophagus and in the middle third of the esophagus. Biopsies were taken with a cold forceps for histology. Verification of patient identification for the specimen was done by the physician and mechanical manufacturing technician using the patient's name and medical record number. Two superficial esophageal ulcers with no bleeding and no stigmata of recent bleeding were found 37 cm from the incisors. The esophagus and gastroesophageal junction were examined with white light. 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 These changes involved the mucosa at the upper extent of the gastric folds (39 cm from the incisors) extending to the Z-line (38 cm from the incisors). Hiatal narrowing was identified at 41 cm. The maximum longitudinal extent of these esophageal mucosal changes was 1 cm in length. Mucosa was biopsied with a cold forceps for histology. Estimated blood loss was minimal. Verification of patient identification for the specimen was done by the physician and mechanical manufacturing technician using the patient's name and medical record number. The entire examined stomach was normal. Retained gastric contents are not identified on this exam. The examined duodenum was normal. The cardia and gastric fundus were normal on retroflexion. Impression: - Esophageal mucosal changes suggestive of eosinophilic esophagitis. Biopsied. - Non-bleeding esophageal ulcers. 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 Biopsied. - Normal stomach. - Normal examined duodenum. Recommendation: - Discharge patient to home (ambulatory). - Resume regular diet. - Await pathology results. - Use Prilosec (omeprazole) 40 mg PO BID for 4 months. - Repeat the upper endoscopy in 3 months to check healing and to evaluate the response to therapy. - Return to referring physician as previously scheduled. MD Fredy Saldaña MD 07/23/2017 2:44:37 PM This report has been signed electronically. Note Initiated On: 07/23/2017 1:58 PM I attest to the content of the Intraoperative Record and orders documented therein, exceptions below
--- NOTE | 2017-07-23 14:46 | Discharge Instructions ---
Endoscopy Patient Instructions Date / Procedure(s) Performed Jul 23, 2017. EGD Allergy Information Coded Allergies: Morphine (Verified Allergy, Intermediate, itchy anxious, 07/13/17) Discharge Date / Findings Jul 23, 2017. possible EoE HH ? [facility] Medication Instructions Restart Stopped Medication(s): Reported Home Medications Medications Dose Route/Sig Max Daily Dose Days Date Category Ventolin Hfa (Albuterol) 200 Puffs/90636 Mcg Aers 2-4 Puffs INH Q6H PRN 07/13/17 Reported Micro-K Ext Rel (Potassium Chloride) 10 Meq Capcr 10 Meq PO QAM 07/13/17 Reported Mvi With Minerals (Multivitamins/Minerals) Tab 1 Tab PO QAM 09/26/13 Reported Singulair (Montelukast Sodium) 10 Mg Tab 10 Mg PO QAM 07/09/13 Reported Zestril (Lisinopril) 20 Mg Tab 20 Mg PO QAM 07/09/13 Reported Zyloprim (Allopurinol) 300 Mg Tab 300 Mg PO QAM 07/09/13 Reported Omeprazole 40mg twice daily Reported Home Medications Medications Dose Route/Sig Max Daily Dose Days Date Category Ventolin Hfa (Albuterol) 200 Puffs/01968 Mcg Aers 2-4 Puffs INH Q6H PRN 07/13/17 Reported Micro-K Ext Rel (Potassium Chloride) 10 Meq Capcr 10 Meq PO QAM 07/13/17 Reported Mvi With Minerals (Multivitamins/Minerals) Tab 1 Tab PO QAM 09/26/13 Reported Singulair (Montelukast Sodium) 10 Mg Tab 10 Mg PO QAM 07/09/13 Reported Zestril (Lisinopril) 20 Mg Tab 20 Mg PO QAM 07/09/13 Reported Zyloprim (Allopurinol) 300 Mg Tab 300 Mg PO QAM 07/09/13 Reported Omeprazole 40mg twice daily Provider Instructions Activity Restrictions - No exercising or heavy lifting for 24 hours. - Do not drink alcohol the day of the procedure. - Do not drive a car or operate machinery until the day after the procedure. - Do not make any important decisions or sign important papers in 24 hours after the procedure. Following Day: - Return to full activity which may include returning to work/school. Diet Start your diet with liquids and light foods (jello, soup, juice, toast). Then eat your usual diet if not nauseated. Treatment For Common After Affects For mild abdominal pain, bloating, or excessive gas: - Rest - Eat lightly - Lie on right side Follow-Up Information Follow-up with Dr. Gannon as scheduled Anesthesia Information What You Should Know You have had a procedure that required some medicine to reduce anxiety and discomfort. This treatment is called moderate sedation. After receiving the treatment, you may be sleepy, but you will be able to breathe on your own. The effects of the treatment may last for several hours. Follow these instructions along with Activity/Diet recommendations noted above: * Do NOT do anything where dizziness or clumsiness would be dangerous. * Rest quietly at home today, then you can be up and about tomorrow. * Have a responsible person stay with you the rest of today. * You may have had an I.V. today. If so, you may take the dressing off later today. Recommendations Call your doctor if: * Trouble breathing * Continuous vomiting for more than 24 hours * Temperature above 101 degrees * Severe abdominal pain or bloating * Pain not relieved by pain medicine ordered * There is increased drainage or redness from any incision * A large amount of rectal bleeding greater than 2-3 tablespoons. (If you had a polyp/s removed or have hemorrhoids, a small amount of blood - from the rectum is to be expected.) * You have any unanswered questions or concerns. IN THE EVENT OF A SERIOUS EMERGENCY, GO TO THE NEAREST EMERGENCY ROOM Your discharge instructions were prepared by provider Fredy Corrales. Patient Instructions Signature Page Damian Maki Patient (or Guardian) Signature/Date: I have read and understand the instructions given to me by my caregivers. Caregiver/RN/Doctor Signature/Date: The above-named patient and/or guardian has received patient instructions on this date. + Original Patient Signature Page (only) stays with chart. Please make copy for patient.
--- NOTE | 2017-07-23 15:06 | Anesthesiology Progress Note ---
Anesthesia Post Op Note Date & Time Jul 23, 2017 at 15:05 Vital Signs Pain Intensity: 0 Vital Signs Past 12 Hours Date Time Temp Pulse Resp B/P (MAP) Pulse Ox O2 Delivery O2 Flow Rate FiO2 07/23/17 14:55 76 20 124/76 (92) 95 Room Air 07/23/17 14:38 94 20 122/79 (93) 97 Room Air 07/23/17 13:41 36.9 64 12 111/64 (80) 95 Room Air Notes Mental Status: alert / awake / arousable, participated in evaluation Pt Amnestic to Procedure: Yes Nausea / Vomiting: adequately controlled Pain: adequately controlled Airway Patency, RR, SpO2: stable & adequate BP & HR: stable & adequate Hydration State: stable & adequate Anesthetic Complications: no major complications apparent
[2017-07-23 15:10] VITALS: BP 125/81; PULSE 67; O2SAT 96
== END | disposition home or self-care (01) ==
LOC: C.GI 12:39
PROVIDERS: ATTEND Internal Medicine Gastroenterology
DX: K20.0 Eosinophilic esophagitis (principal); I10 Essential (primary) hypertension; J45.909 Unspecified asthma, uncomplicated; Z79.899 Other long term (current) drug therapy

== ENCOUNTER → 2017-08-10 | Outpatient (CLI) | payer BC ==
[~2017-08-10] MED LIST changes: -FENTANYL CITRATE INJ 50 MCG/1 ML 2 ML VIAL ONE; -LIDOCAINE HCL 2% 2 ML VIAL (20MG/ML) ONE; -PROPOFOL IV EMULSION 10 MG/ML 20 ML VIAL IV ONE; -SODIUM CHLORIDE 0.9% 500ML 500 ML IV ONE
--- NOTE | 2017-08-10 14:32 | DIAGNOSTIC IMAGING REPORT ---
KUB HISTORY: Acute flank pain. N20.0 [id number] COMPARISON: KUB 05/19/2017. FINDINGS: The bowel gas pattern is non-obstructive. There is no organomegaly. Bilateral nephrolithiasis appears unchanged from prior with largest calculus involving the superior pole left kidney measuring up to 4 mm. No definite ureteral calculi are identified. There are 2 radiodense foci of the left abdomen which measuring up to 3 and 5 mm respectively. No pneumoperitoneum or pneumatosis. No fracture. IMPRESSION: 1. Unchanged appearance of bilateral nephrolithiasis without ureteral calculi. 2. Two subcentimeter radiodense foci of the left midabdomen suggest ingested material, possibly foreign bodies. Electronically signed by: Bernardo Haque M.D. 08/10/2017 2:31 PM Dictated Date/Time: 08/10/2017 2:29 PM
== END | disposition home or self-care (01) ==
LOC: C.RAD 09:56
PROVIDERS: ATTEND Internal Medicine Nephrology
DX: R20.0 Anesthesia of skin (principal)

== ENCOUNTER → 2018-03-16 | Outpatient (CLI) | payer BC ==
[~2018-03-16] MED LIST changes: +OPTIRAY 320 IV PRN
--- NOTE | 2018-03-16 16:57 | DIAGNOSTIC IMAGING REPORT ---
ABDOMEN AND PELVIS CT WITH IV AND ORAL CONTRAST CT DOSE: 1448.65 mGy.cm HISTORY: Acute generalized abdominal pain ABD PAIN TECHNIQUE: Multiaxial CT images of the abdomen and pelvis were performed following the use of intravenous and oral contrast. A dose lowering technique was utilized adhering to the principles of ALARA. COMPARISON STUDY: CT abdomen and pelvis 12/14/2014 FINDINGS: Subsegmental consolidative opacities about the inferior segment lingula and medial segment right middle lobe favor atelectasis. There is no pneumatosis or pneumoperitoneum. The imaged inferior cardiac chambers are unremarkable. Coronary arterial calcifications are suggested. Mildly contracted gallbladder. Fatty infiltration of the liver. No focal hepatic mass lesion or intrahepatic biliary ductal dilation. Spleen, pancreas and adrenal glands are unremarkable. Exophytic cyst of the superior pole left kidney, 2.4 cm. Nonobstructing 5 mm calculus about the interpolar left kidney with punctate calculi about the superior and inferior pole left kidney. There are at least 4 nonobstructing calculi about the right kidney measuring up to 4 mm. No ureteral calculi or obstructive uropathy. Ureters and bladder are unremarkable. Calcifications are seen about the central prostate. Small fat filled left inguinal hernia. The aorta and IVC appear to be within normal limits. The portal vein is patent. Mildly prominent aortocaval and periaortic lymph nodes are seen measuring up to 8 mm in short axis, unchanged and likely physiologic. Moderate sized hiatal hernia. There is no bowel obstruction or focal bowel wall thickening identified. There are postoperative changes from prior partial sigmoid colon resection with color colonic anastomosis. Mild colonic diverticulosis without diverticulitis. Terminal ileum and appendix appear normal. There is no ascites or mesenteric inflammatory changes. Prior ventral abdominal wall herniorrhaphy. Soft tissues are within normal limits. The bones appear to be intact. Multilevel spondylitic spurring. Moderate facet arthropathy at L4-L5 and L5-S1. IMPRESSION: 1. No acute intra-abdominal or intrapelvic abnormality identified. 2. No bowel obstruction or focal bowel wall thickening. Normal appendix. 3. Colonic diverticulosis without diverticulitis. 4. Prior partial sigmoid colon resection with colocolonic anastomosis. 5. Nonobstructing bilateral nephrolithiasis. 6. Moderate sized hiatal hernia. Electronically signed by: Bernardo Haque M.D. 03/16/2018 4:56 PM Dictated Date/Time: 03/16/2018 4:45 PM
== END | disposition home or self-care (01) ==
LOC: C.CTS 15:53
PROVIDERS: ATTEND Surgery
DX: R10.9 Unspecified abdominal pain (principal); K63.89 Other specified diseases of intestine; K57.30 Diverticulosis of large intestine without perforation or abscess without bleeding; N20.0 Calculus of kidney; K44.9 Diaphragmatic hernia without obstruction or gangrene

== ENCOUNTER 2022-10-09 15:41 | Inpatient (IN) ==
[2022-10-09] MEDS ORDERED: ONDANSETRON INJ 2 MG/ML 2 ML VIAL IV STA ×2 (15:57→18:14)
[2022-10-09] MEDS ORDERED: KETOROLAC TROMETHAMINE 15 MG/ML VIAL IV STA (15:57)
[2022-10-09] MEDS ORDERED: SODIUM CHLORIDE 0.9% 1000ML 1,000 ML IV STA (15:57)
--- NOTE | 2022-10-09 15:57 | ED Triage Note ---
Date of Service October 09, 2022 History of Present Illness This patient was briefly evaluated while in triage. An abbreviated physical exam was performed. This patient is a 51-year-old Male who presents to the ED for evaluation of flank pain. He is having extreme left flank pain since yesterday. History of kidney stones and it feels the same. Denies any urinary symptoms. No hematuria. Denies any fevers. Nausea from the pain, but no vomiting. History of lithotripsy and stents for his stones in the past. Not on any blood thinners. Physical Exam GENERAL: Appears in pain. Non-toxic and in no acute distress. HEART: Regular rate and rhythm. LUNGS: Clear to auscultation. No accessory muscle use. ABDOMEN: Bowel sounds normoactive. No guarding or rigidity. Tender to palpation in the left flank. NEURO: Alert and oriented. No obvious neurological deficits. Initial orders for labs and / or imaging were placed and patient was placed in the waiting area until a bed is available. Please see further documentation for the full ED course. MDM / Impression Impression Impression: Ureterolithiasis, Acute left flank pain
[2022-10-09 17:05] LABS: Appearance Urine Clear (Clear); Bilirubin Urine Negative (Negative); Blood Urine Negative (Negative); Color Urine Yellow; Glucose Urine UA Negative (Negative); Ketones Urine Negative (Negative); Leukocyte Esterase Urine Negative (Negative); Nitrite Urine Negative (Negative); Protein Urine Negative (Negative); Specific Gravity Urine 1.017 (1.000-1.030); Urobilinogen Urine Negative (Negative); pH Urine 8.5 (4.5-7.5)
[2022-10-09 17:07] LABS: Basophils # (auto) 0.11 K/uL (0-0.2); Basophils % (auto) 1.3 %; Eosinophils # (auto) 0.26 K/uL (0-0.50); Eosinophils % (auto) 3.1 %; Hematocrit (blood only) 46.2 % (42.0-52.0); Hemoglobin 16.6 g/dl (14.0-18.0); Immature Granulocytes # (auto) 0.02 K/uL (0.01-0.20); Immature Granulocytes % (auto) 0.2 %; Lymphocytes # (auto) 1.41 K/uL (1.2-3.4); Lymphocytes % (auto) 16.8 %; Mean Corpuscular Hemoglobin 32.7 pg (25.0-34.0); Mean Corpuscular Hgb Conc 35.9 g/dL (32.0-36.0); Mean Corpuscular Volume 91.1 fL (80.0-100.0); Mean Platelet Volume 9.2 fL (9.4-12.4); Monocytes # (auto) 0.65 K/uL (0.11-0.59); Monocytes % (auto) 7.8 %; Neutrophils # (auto) 5.93 K/uL (1.40-6.50); Neutrophils % (auto) 70.8 %; Platelet Count 281 K/uL (130-400); RDW Standard Deviation 43.5 fL (36.4-46.3); Red Blood Count 5.07 M/uL (4.70-6.10); White Blood Count 8.38 K/ul (4.8-10.8)
--- NOTE | 2022-10-09 17:52 | CT Scan Report ---
CT abd pelvis wo con CLINICAL HISTORY: Left flank pain, h/o kidney stones TECHNIQUE: Helical axial images of the abdomen and pelvis were obtained. Automated dose lowering tech niques and/or adjustment according to patient size were utilized for this exam. This exam was perfor med without intravenous contrast. CT DOSE: 1227.13 mGycm COMPARISON: Comparison is made to CT abdomen pelvis 09/12/2022 FINDINGS: Lower chest: No acute abnormality. Liver: Unremarkable. No focal lesions are seen. Gallbladder and biliary tree: No calcified gallstones. Normal caliber wall. No intra- or extrahepatic biliary ductal dilation. Pancreas: Unremarkable, no focal lesions. Spleen: Unremarkable. Adrenals: Unremarkable. Kidneys and ureters: Exophytic lesion arising from the left kidney measures 16 mm, and greater than s imple fluid density. There is a 5 mm stone in the left proximal ureter with associated hydronephrosis /hydroureter. Nonobstructive stone is seen on the right. Bladder: Limited evaluation due to underdistention. Reproductive organs: Prostatic calcifications are seen which may represent prior hemorrhage or granul omatous disease. Bowel: Postsurgical changes of colonic resection noted. Diverticulosis is seen without evidence of di verticulitis. The appendix is normal. There is a moderate hiatal hernia. Lymph nodes Retroperitoneal: Unremarkable. Pelvic: Unremarkable. Mesenteric: Unremarkable. Peritoneum: Normal. Vessels: Unremarkable. Abdominal wall: Incisional scar is seen in the midline. There is a fat-containing hernia on the left inguinal canal. Bones: Degenerative changes in the visualized spine. IMPRESSION: 1. Obstructive stone in the left proximal ureter measuring 5 mm, there is associated hydronephrosis and hydroureter. 2. Right nonobstructive nephrolithiasis. 3. Colonic diverticulosis without evidence of diverticulitis. Postsurgical changes of bowel resectio n. ACT 112: Negative or not required by law. Electronically signed by: Dani Ferris M.D. 10/09/2022 5:50 PM
[2022-10-09 17:56] LABS: Alanine Aminotransferase 49 U/L (7-52); Albumin Globulin Ratio 1.4 (0.9-2); Albumin Level 4.8 gm/dl (3.4-5.0); Alkaline Phosphatase 48 U/L (34-104); Anion Gap 6 (3-11); BUN Creatinine Ratio 16.1 (10-20); Bilirubin,Total 0.7 mg/dl (0.2-1.0); Blood Urea Nitrogen 23 mg/dl (6-23); Calcium 9.9 mg/dl (8.5-10.1); Carbon Dioxide 28 mmol/L (21-32); Chloride 103 mmol/L (98-107); Est GFR (African American) 66.2 ml/min; Est GFR (Non-African American) 57.1 ml/min; Globulin 3.5 gm/dl (2.5-4.0); Glucose 112 mg/dl (70-99(Fasting)); Lipase 41 U/L (11-82); Sodium 137 mmol/L (136-145); Total Protein 8.3 gm/dl (6.0-8.3)
[2022-10-09] MEDS: HYDROmorphone INJ 0.5 MG/0.5 ML SYR IV PRN ×5 (18:46→21:24)
[2022-10-09 18:49] LABS: Potassium 4.5 mmol/L (3.5-5.1)
--- NOTE | 2022-10-09 19:02 | Emergency Department Note ---
Impression & Plan Ureterolithiasis, Acute left flank pain ED Provider Note INFORMANT: Patient ED PROVIDER(S): Breezy Fernandez MD CHIEF COMPLAINT: Flank pain PLAN: Disposition: Admitted Condition: Good Outpatient prescription management: none Referral: None MEDICAL DECISION MAKING: Patient presented emergency department complaining of flank pain. He underwent a work-up. He received IV Toradol and Zofran. He was still having pain. The patient was given IV Dilaudid. Patient did require multiple doses of Dilaudid for symptom control. He had an unremarkable CBC and chemistry panel. The patient's creatinine was minimally elevated compared to prior. He required additional pain medication after his CT was performed. The patient was found to have a an obstructing left-sided proximal ureteral stone. He was observed. Patient was given additional pain medication. On reassessment the patient was still very uncomfortable. At this point in time he has had 5 doses of IV pain medications and is still very uncomfortable. At this point the patient will need further management in the hospital given his level of discomfort. I did consult with urology, Dr. Duran. He has for the patient be made n.p.o. after midnight. Patient will be reassessed tomorrow and treated as necessary by urology. Consultation was made with Dr. Geraldo Arguello of the [facility] service. Patient was evaluated in the ER for further management. After review of the information above and other included data, I feel the patient requires further management in the hospital. Triage Nursing notes reviewed and agree them. Vital Signs: reviewed and remarkable for hypertension Prior /Outside records reviewed: none Differential diagnosis: Renal colic, UTI, appendicitis, diverticulitis, mesenteric ischemia, aortic pathology, infections, inflammatory bowel disease, PUD, biliary pathology, as well as other pathologies. Diagnostics, as interpreted by me: ECG: none Cardiac Monitoring: Cardiac monitoring ordered by me: The patient was placed on continuous cardiac monitoring and observed. It revealed a normal sinus rhythm at 80 beats per minute without ectopy or evidence of dysrhythmia. Medical decision rules: none Imaging studies: CT imaging as noted above. Left-sided 5 mm stone with obstruction. HPI: The patient is a 51 year old male who presents to the Emergency Room with complaints of left flank pain. This started yesterday and is radiating to the left lower quadrant. The patient also notes the following associated symptoms, nausea. The patient has found no relieving factors. Current pain is rated as 10/10. Patient has a history of kidney stones. States has been several years. Feels somewhat similar. Pt denies LOC, headache, fevers, chills, diaphoresis, visual changes, neck pain, chest pain, breathing difficulties, vomiting, melena, hematochezia, urinary symptoms, numbness, weakness, lymphadenopathy, rash, or other complaints. PAST MEDICAL HISTORY: See Below, kidney stones PAST SURGICAL HISTORY: See Below, SOCIAL HISTORY: See Below, non-smoker HOME MEDICATIONS: See Below ALLERGIES: See Below VITALS: See Below PHYSICAL EXAMINATION: GENERAL: Awake, alert, uncomfortable-appearing, in no distress HENT: Normocephalic, atraumatic. Oropharynx unremarkable. EYES: Normal conjunctiva. Sclera non-icteric. NECK: Inspection normal. Non-tender. Supple. No nuchal rigidity. FROM. No ma sses. RESPIRATORY: Clear to auscultation. No wheezes. No rales. Normal respiratory effort. CARDIAC: Normal rate. Normal rhythm. No murmurs. No rubs. Extremities warm and well perfused. Pulses equal. No JVD. GI: Soft, non-distended. Left lower quadrant tenderness to palpation. No rebound or guarding. No masses. RECTAL: Deferred. MUSCULOSKELETAL: Atraumatic. Chest examination reveals no tenderness. The back is symmetrical on inspection without obvious abnormality. There is left CVA tenderness to palpation. No joint edema. LOWER EXTREMITIES: Calves are equal size bilaterally and non-tender. No edema. No discoloration. NEURO: Normal sensorium. No sensory or motor deficits noted. SKIN: No rash or jaundice noted. Past Med/Surg History Medical History (Updated 10/09/22 @ 22:07 by Ike Castellano MD) Acute kidney injury Asthma Diabetes Diverticulitis of colon with perforation (07/19/13) Eosinophilic esophagitis Gout HTN (hypertension) Left flank pain Nephrolithiasis Nephrolithiasis PVCs (premature ventricular contractions) Right ureteral stone Vitamin D insufficiency Surgical History H/O colostomy History of colostomy Hx of hernia repair S/P colostomy takedown (10/07/13) S/P partial colectomy Family History Uncle Pancreatic cancer Colorectal cancer Prostate cancer Family/Other Colorectal cancer Father Myocardial infarction Pancreatic cancer Coronary heart disease Hypertension Grandfather (Maternal) Myocardial infarction Grandmother (Maternal) Pancreatic cancer Other Cancer Denies family history of Ovarian cancer Breast cancer Social History Smoking Status: Never smoker Second Hand Exposure: No; Hx Alcohol Use: No Hx Substance Use: No Preferred Language: Georgian 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 Required: No marital status: Current Living Situation: Alone current occupational status: employed 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 [employer] Feels Safe at Home: Yes Childhood Exposure to Second-Hand Smoke: No Dental Care, Regularly: Yes Physical Activity Frequency: 1-2 Times per Week Physical Activity Frequency Comment: regularly Seatbelt Use: always Sunscreen Use: Yes Allergies Allergies Allergy/AdvReac Type Severity Reaction Status Date / Time morphine Allergy Intermediate itchy/anxio Verified 10/09/22 19:14 Home Meds Home Medications Medication Instructions Recorded Confirmed multivitamin 1 tab PO QAM 05/17/19 10/09/22 chlorpheniramine maleate 4 mg 4 mg PO QAM 10/09/22 10/09/22 tablet Previous Rx's Medication Instructions Recorded cholecalciferol (vitamin D3) 50 50 mcg PO DAILY #90 caps 07/03/ mcg (2,000 unit) capsule mecobalamin (vitamin B12) 1,000 1,000 mcg PO DAILY #90 tabs 07/03/ mcg chewable tablet albuterol sulfate 90 mcg/actuation 2 puff inhalation Q4H PRN 06/03/21 aerosol inhaler (ProAir HFA) shortness of breath or wheezing #1 inhaler allopurinol 300 mg tablet 300 mg PO QAM #30 tabs 04/21/22 montelukast 10 mg tablet 10 mg PO QAM #30 tabs 04/21/22 omeprazole 20 mg capsule,delayed 20 mg PO QAM #30 caps 04/21/22 release potassium citrate 10 mEq (1,080 10 meq PO DAILY 90 days #90 tabs 04/29/22 mg) tablet,extended release lisinopril 20 mg tablet 20 mg PO QAM #90 tabs 06/09/22 Results & Data (ED) Vital Signs Vital Signs - 24 hr 10/09/22 15:55 10/09/22 18:01 10/09/22 22:00 Temperature 36.8 C Temperature Source Temporal Artery Scan Pulse Rate 97 H Pulse Rate [Right Finger] 72 80 Pulse Rhythm [Right Finger] Regular Pulse Strength [Right Finger] Normal Respiratory Rate 20 20 17 Respiratory Effort / Characteristics Non-Labored Spontaneous Non-Labored Non-Labored Respiratory Depth Normal Normal Normal Respiratory Pattern Regular Regular Blood Pressure 141/97 H Blood Pressure [Right Arm] 132/78 149/106 H Blood Pressure Mean 111 Blood Pressure Mean [Right Arm] 96 120 Blood Pressure Position [Right Arm] Lying Pulse Oximetry 97 99 94 Oxygen Delivery Method Room Air Room Air Room Air Sepsis Recent Fever Within 48 Hours No Sepsis New/Unexplained Change in Mental Status No Sepsis Action Taken by Nursing No Action Required Laboratory Data 10/09/22 16:51 10/09/22 18:04 Lab Results 10/09/22 10/09/22 10/09/22 Range/Units 16:50 16:51 16:51 WBC 8.38 (4.8-10.8) K/ul RBC 5.07 (4.70-6.10) M/uL Hgb 16.6 (14.0-18.0) g/dl Hct 46.2 (42.0-52.0) % MCV 91.1 (80.0-100.0) fL MCH 32.7 (25.0-34.0) pg MCHC 35.9 (32.0-36.0) g/dL RDW Std Deviation 43.5 (36.4-46.3) fL RDW Coeff of Sirisha 13.0 (11.5-14.5) % Plt Count 281 (130-400) K/uL MPV 9.2 L (9.4-12.4) fL Immature Gran % (Auto) 0.2 % Neut % (Auto) 70.8 % Lymph % (Auto) 16.8 % Rock % (Auto) 7.8 % Eos % (Auto) 3.1 % Baso % (Auto) 1.3 % Neut # (Auto) 5.93 (1.40-6.50) K/uL Lymph # (Auto) 1.41 (1.2-3.4) K/uL Rock # (Auto) 0.65 H (0.11-0.59) K/uL Eos # (Auto) 0.26 (0-0.50) K/uL Baso # (Auto) 0.11 (0-0.2) K/uL Immature Gran # (Auto) 0.02 (0.01-0.20) K/uL Sodium 137 (136-145) mmol/L Potassium TNP Chloride 103 (98-107) mmol/L Carbon Dioxide 28 (21-32) mmol/L Anion Gap 6 (3-11) BUN 23 (6-23) mg/dl Creatinine 1.43 H (0.6-1.4) mg/dl Est Cr Clr Drug Dosing Not Reportable Est GFR ( Amer) 66.2 ml/min Est GFR (Non-Af Amer) 57.1 ml/min BUN/Creatinine Ratio 16.1 (10-20) Glucose 112 H (70-99(Fasting)) mg/dl Calcium 9.9 (8.5-10.1) mg/dl Total Bilirubin 0.7 (0.2-1.0) mg/dl AST TNP ALT 49 (7-52) U/L Alkaline Phosphatase 48 (34-104) U/L Total Protein 8.3 (6.0-8.3) gm/dl Albumin 4.8 (3.4-5.0) gm/dl Globulin 3.5 (2.5-4.0) gm/dl Albumin/Globulin Ratio 1.4 (0.9-2) Lipase 41 (11-82) U/L Urine Color Yellow Urine Appearance Clear (Clear) Urine pH 8.5 H (4.5-7.5) Ur Specific [place] 1.017 (1.000-1.030) Urine Protein Negative (Negative) Urine Glucose (UA) Negative (Negative) Urine Ketones Negative (Negative) Urine Blood Negative (Negative) Urine Nitrite Negative (Negative) Urine Bilirubin Negative (Negative) Urine Urobilinogen Negative (Negative) Ur Leukocyte Esterase Negative (Negative) SARS-CoV-2, RNA, NAAT (NEGATIVE) 10/09/22 10/09/22 Range/Units 18:04 21:21 WBC (4.8-10.8) K/ul RBC (4.70-6.10) M/uL Hgb (14.0-18.0) g/dl Hct (42.0-52.0) % MCV (80.0-100.0) fL MCH (25.0-34.0) pg MCHC (32.0-36.0) g/dL RDW Std Deviation (36.4-46.3) fL RDW Coeff of Sirisha (11.5-14.5) % Plt Count (130-400) K/uL MPV (9.4-12.4) fL Immature Gran % (Auto) % Neut % (Auto) % Lymph % (Auto) % Rock % (Auto) % Eos % (Auto) % Baso % (Auto) % Neut # (Auto) (1.40-6.50) K/uL Lymph # (Auto) (1.2-3.4) K/uL Rock # (Auto) (0.11-0.59) K/uL Eos # (Auto) (0-0.50) K/uL Baso # (Auto) (0-0.2) K/uL Immature Gran # (Auto) (0.01-0.20) K/uL Sodium (136-145) mmol/L Potassium 4.5 Chloride (98-107) mmol/L Carbon Dioxide (21-32) mmol/L Anion Gap (3-11) BUN (6-23) mg/dl Creatinine (0.6-1.4) mg/dl Est Cr Clr Drug Dosing Est GFR ( Amer) ml/min Est GFR (Non-Af Amer) ml/min BUN/Creatinine Ratio (10-20) Glucose (70-99(Fasting)) mg/dl Calcium (8.5-10.1) mg/dl Total Bilirubin (0.2-1.0) mg/dl AST 30 ALT (7-52) U/L Alkaline Phosphatase (34-104) U/L Total Protein (6.0-8.3) gm/dl Albumin (3.4-5.0) gm/dl Globulin (2.5-4.0) gm/dl Albumin/Globulin Ratio (0.9-2) Lipase (11-82) U/L Urine Color Urine Appearance (Clear) Urine pH (4.5-7.5) Ur Specific [place] (1.000-1.030) Urine Protein (Negative) Urine Glucose (UA) (Negative) Urine Ketones (Negative) Urine Blood (Negative) Urine Nitrite (Negative) Urine Bilirubin (Negative) Urine Urobilinogen (Negative) Ur Leukocyte Esterase (Negative) SARS-CoV-2, RNA, NAAT NEGATIVE (NEGATIVE) Administered Medications Hydromorphone HCl (Hydromorphone Inj 0.5 Mg/0.5 Ml Syr) 0.5 mg IV Q15M PRN PRN Reason: Pain Stop: 10/23/22 18:13 Last Admin: 10/09/22 21:24 Dose: 0.5 mg Documented By: Admin: 10/09/22 20:16 Dose: 0.5 mg Documented By: Admin: 10/09/22 19:38 Dose: 0.5 mg Documented By: Admin: 10/09/22 19:18 Dose: 0.5 mg Documented By: Admin: 10/09/22 18:46 Dose: 0.5 mg Documented By: JANE Discontinued Medications Sodium Chloride (Nss 1000ml) 1,000 mls @ 999 mls/hr IV .Q1H1M STA Stop: 10/09/22 16:57 Last Infusion: 10/09/22 18:11 Dose: 0 mls/hr Documented By: Admin: 10/09/22 16:33 Dose: 999 mls/hr Documented By: CHACE Ceftriaxone Sodium 2,000 mg/ (Dextrose) 70 mls @ 100 mls/hr IV NOW STA; Protocol Stop: 10/09/22 22:46 Last Admin: 10/09/22 22:21 Dose: 100 mls/hr Documented By: CHANDA Ketorolac Tromethamine (Ketorolac Tromethamine 15 Mg/Ml Vial) 10 mg IV NOW STA Stop: 10/09/22 15:58 Last Admin: 10/09/22 16:33 Dose: 10 mg Documented By: CHACE Ondansetron HCl (Ondansetron Inj 2 Mg/Ml 2 Ml Vial) 4 mg IV NOW STA Stop: 10/09/22 15:58 Last Admin: 10/09/22 16:33 Dose: 4 mg Documented By: CHACE Ondansetron HCl (Ondansetron Inj 2 Mg/Ml 2 Ml Vial) 4 mg IV NOW STA Stop: 10/09/22 18:15 Last Admin: 10/09/22 18:46 Dose: 4 mg Documented By: JANE Tamsulosin HCl (Tamsulosin Hcl 0.4 Mg Cap) 0.4 mg PO NOW ONE Stop: 10/09/22 22:03 Last Admin: 10/09/22 22:21 Dose: 0.4 mg Documented By: [facility] Imaging Data Radiologist's Impression: Abdomen/Pelvis CT 10/09/22 15:57 CT abd pelvis wo con CLINICAL HISTORY: Left flank pain, h/o kidney stones TECHNIQUE: Helical axial images of the abdomen and pelvis were obtained. Automated dose lowering techniques and/or adjustment according to patient size were utilized for this exam. This exam was performed without intravenous contrast. CT DOSE: 1227.13 mGycm COMPARISON: Comparison is made to CT abdomen pelvis 09/12/2022 FINDINGS: Lower chest: No acute abnormality. Liver: Unremarkable. No focal lesions are seen. Gallbladder and biliary tree: No calcified gallstones. Normal caliber wall. No intra- or extrahepatic biliary ductal dilation. Pancreas: Unremarkable, no focal lesions. Spleen: Unremarkable. Adrenals: Unremarkable. Kidneys and ureters: Exophytic lesion arising from the left kidney measures 16 mm, and greater than simple fluid density. There is a 5 mm stone in the left proximal ureter with associated hydronephrosis/hydroureter. Nonobstructive stone is seen on the right. Bladder: Limited evaluation due to underdistention. Reproductive organs: Prostatic calcifications are seen which may represent prior hemorrhage or granulomatous disease. Bowel: Postsurgical changes of colonic resection noted. Diverticulosis is seen without evidence of diverticulitis. The appendix is normal. There is a moderate hiatal hernia. Lymph nodes Retroperitoneal: Unremarkable. Pelvic: Unremarkable. Mesenteric: Unremarkable. Peritoneum: Normal. Vessels: Unremarkable. Abdominal wall: Incisional scar is seen in the midline. There is a fat- containing hernia on the left inguinal canal. Bones: Degenerative changes in the visualized spine. IMPRESSION: 1. Obstructive stone in the left proximal ureter measuring 5 mm, there is associated hydronephrosis and hydroureter. 2. Right nonobstructive nephrolithiasis. 3. Colonic diverticulosis without evidence of diverticulitis. Postsurgical changes of bowel resection. ACT 112: Negative or not required by law. Electronically signed by: Dani Ferris M.D. 10/09/2022 5:50 PM Discharge Plan Visit Data Chief Complaint: Flank Pain Stated Complaint: POSSIBLE KIDNEY STONES ON LEFT SIDE ED Provider: Breezy Fernandez Discharge Problem: Ureterolithiasis, Acute left flank pain Forms Stand Alone Forms: My [facility] Prescriptions Prescriptions: No Action omeprazole 20 mg capsule,delayed release(DR/EC) 20 mg PO QAM Qty: 30 5RF montelukast 10 mg tablet 10 mg PO QAM Qty: 30 5RF allopurinol 300 mg tablet 300 mg PO QAM Qty: 30 5RF potassium citrate 10 mEq (1,080 mg) tablet extended release 10 meq PO DAILY 90 Days Qty: 90 3RF lisinopril 20 mg tablet 20 mg PO QAM Qty: 90 1RF cholecalciferol (vitamin D3) 50 mcg (2,000 unit) capsule 50 mcg PO DAILY Qty: 90 3RF Rx Instructions: with heaviest meal of the day mecobalamin (vitamin B12) 1,000 mcg tablet,chewable 1,000 mcg PO DAILY Qty: 90 3RF multivitamin tablet 1 tab PO QAM albuterol sulfate [ProAir HFA] 90 mcg/actuation HFA aerosol inhaler 2 puff INH Q4H PRN (Reason: shortness of breath or wheezing) Qty: 1 3RF chlorpheniramine maleate [Chlor-Trimeton] 4 mg Tablet 4 mg PO QAM Referrals Referrals: Dashawn Torres MD [Primary Care Provider] -
--- NOTE | 2022-10-09 21:39 | History & Physical Report ---
Date of Service October 09, 2022 Assessment & Plan (1) Ureteral calculi: Plan: 51-year-old male with history of nephrolithiasis s/p 8+ lithotripsies in the past and prior stenting (all removed), ENEIDA, type 2 diabetes, hypertension, asthma, gout who presented to [facility] for evaluation of L flank pain, subsequently found to have an obstructing 5mm LEFT sided ureteral stone. Hydroureteronephrosis secondary to Obstructing Nephrolithiasis - L Proximal Ureter Patient is status post multiple lithotripsies and stenting in the past; last time in [id number] per his report CTAP demonstrating 5 mm obstructing stone within the left proximal ureter with associated hydronephrosis and hydroureter; also noted more nonobstructing right- sided nephroliths and postsurgical changes of a prior bowel resection Urology consulted in the ED: Appreciate procedural expertise, need for lithotripsy? NPO @ midnight. Flomax scheduled Pain: Scheduled Tylenol; Dilaudid for breakthrough pain -- hold on further NSAIDs/Toradol for now in setting of SAQIB Strain all urine NSS @ 125cc/hr x 2L Give single dose of CFTX now given obstructing process and upstream dilation - consider continuation if indicated (2) Acute kidney injury: Plan: SAQIB Suspect post renal in the setting of known hydroureteronephrosis on the left side Continue IVF Trend BMP Avoid nephrotoxic medications (3) Acid reflux: Plan: History of GERD and eosinophilic esophagitis Continue pantoprazole (4) Gout: Plan: Continue allopurinol (5) HTN (hypertension): Plan: Hold lisinopril until postoperative (6) Diabetes mellitus: Plan: Last A1c at 6.6% in 07/2022 Not on home medications Monitor ACHS sugars; if persistently above 140, can consider SSI Resume lisinopril when appropriate (7) Asthma: Plan: Stable, no acute needs Albuterol as needed Continue montelukast Plan Code: Full code Dispo: MedSurg Prophylaxis: SCDs Diet: CC, n.p.o. at midnight, NSS @ 125cc/hr x 2L History of Present Illness Primary Care Provider: Dsahawn Torres MD 51-year-old male with history of nephrolithiasis s/p 8+ lithotripsies in the past and prior stenting (all removed), ENEIDA, type 2 diabetes, hypertension, asthma, gout who presented to [facility] for evaluation of L flank pain This began the day prior to admission and has been associated with nausea. Radiates to LLQ. No f/c/NS. In the ED, patient was found to be hemodynamically stable with normal blood pressure and heart rate. Labs demonstrating no leukocytosis, mild SAQIB with BUN 23/creatinine 1.43 (compared to 17/1.0 on 09/22), normal LFTs, normal lipase. Urinalysis demonstrating elevated urine pH at 8.5. CT of the abdomen and pelvis demonstrating 5 mm obstructing stone within the left proximal ureter with associated hydronephrosis and hydroureter; also noted more nonobstructing right- sided nephroliths and postsurgical changes of a prior bowel resection. He was given Zofran, Toradol, NSS. ED physician spoke with urologist on-call, Dr. Duran. Allergies Allergy/AdvReac Type Severity Reaction Status Date / Time morphine Allergy Intermediate itchy/anxio Verified 10/09/22 19:14 us Home Medications Medication Instructions Recorded Confirmed Type multivitamin 1 tab PO QAM 05/17/19 10/09/22 History cholecalciferol (vitamin D3) 50 50 mcg PO DAILY #90 caps 07/03/20 10/09/22 Rx mcg (2,000 unit) capsule mecobalamin (vitamin B12) 1,000 1,000 mcg PO DAILY #90 tabs 07/03/20 10/09/22 Rx mcg chewable tablet albuterol sulfate 90 mcg/actuation 2 puff inhalation Q4H PRN 06/03/21 10/09/22 Rx aerosol inhaler (ProAir HFA) shortness of breath or wheezing #1 inhaler allopurinol 300 mg tablet 300 mg PO QAM #30 tabs 04/21/22 10/09/22 Rx montelukast 10 mg tablet 10 mg PO QAM #30 tabs 04/21/22 10/09/22 Rx omeprazole 20 mg capsule,delayed 20 mg PO QAM #30 caps 04/21/22 10/09/22 Rx release potassium citrate 10 mEq (1,080 10 meq PO DAILY 90 days #90 tabs 04/29/22 10/09/22 Rx mg) tablet,extended release lisinopril 20 mg tablet 20 mg PO QAM #90 tabs 06/09/22 10/09/22 Rx chlorpheniramine maleate 4 mg 4 mg PO QAM 10/09/22 10/09/22 History tablet Past Med/Surg History Medical History (Updated 10/09/22 @ 22:07 by Ike Castellano MD) Acute kidney injury Asthma Diabetes Diverticulitis of colon with perforation (07/19/13) Eosinophilic esophagitis Gout HTN (hypertension) Left flank pain Nephrolithiasis Nephrolithiasis PVCs (premature ventricular contractions) Right ureteral stone Vitamin D insufficiency Surgical History H/O colostomy History of colostomy Hx of hernia repair S/P colostomy takedown (10/07/13) S/P partial colectomy Family History Uncle Pancreatic cancer Colorectal cancer Prostate cancer Family/Other Colorectal cancer Father Myocardial infarction Pancreatic cancer Coronary heart disease Hypertension Grandfather (Maternal) Myocardial infarction Grandmother (Maternal) Pancreatic cancer Other Cancer Denies family history of Ovarian cancer Breast cancer Social History Smoking Status: Never smoker Second Hand Exposure: No; Hx Alcohol Use: No Hx Substance Use: No Preferred Language: German Surveillance Observer Required: No marital status: Current Living Situation: Alone current occupational status: employed 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 HEENT: NCAT. - Eyes - Sclera are white, anicteric, and without injection. - Mouth - MMM - Neck - supple, no appreciable JVD Cardiac: Normal rate and regular rhythm; S1 and S2 present with no murmurs, rubs, or gallops. Pulmonary: Good respiratory effort with symmetric expansion of the chest. No use of accessory muscles. Lungs were clear to auscultation bilaterally with no crackles or wheezes. Abdominal: Normoactive bowel sounds. Abdomen was soft, nondistended, and non- tender to palpation. Mild L CVA tenderness. Extremities: Upper and lower extremities are warm and well perfused. No peripheral edema in the lower extremities bilaterally Psych: Well-developed, well-nourished, appropriately dressed for occasion. Behavior is cooperative and appropriate. Affect is WNL. Insight is appropriate. Results & Data Results & Data ([facility]) Vital Signs (Past 12 Hours) Vital Signs Temp Pulse Pulse Resp BP BP Pulse Ox 10/09/22 18:01 72 20 132/78 99 10/09/22 15:55 36.8 C 97 H 20 141/97 H 97 O2 Del Method 10/09/22 18:01 Room Air 10/09/22 15:55 Room Air Resident Activity Tracking Resident Involvement: Resident Care Provided Care Provided: Adult Hospital Medicine
[2022-10-09] MEDS ORDERED: TAMSULOSIN HCL 0.4 MG CAP PO ONE (22:02)
[2022-10-09] MEDS ORDERED: cefTRIAXone SODIUM 2,000 MG in DEXTROSE 5% 50 ML IV STA (22:05)
--- NOTE | 2022-10-09 23:04 | Emergency Department Note ---
ED Visit Note OBSERVATION NOTE: The patient was placed in observation status at 1830 hrs. Flank pain. During the time in observation, the patient was frequently reassessed and received multiple doses of IV pain medication. On Final reassessment the patient was still having significant pain. He was found to have a 5 mm stone that was obstructing on the left.. The patient will be admitted at 2100 hrs. A total observation time of 4.5 hrs. .
[2022-10-09] MEDS ORDERED: ALBUTEROL HFA 8 GM INHALER INH PRN (23:20)
[2022-10-09] MEDS ORDERED: HYDROmorphone INJ 0.5 MG/0.5 ML SYR IV PRN (23:20)
[2022-10-09] MEDS: SODIUM CHLORIDE 0.9% 1000ML 1,000 ML IV SCH (23:43)
[2022-10-10] MEDS ORDERED: PROCHLORPERAZINE 5 MG in SYRINGE 4 ML IV ONE (00:15)
[2022-10-10] MEDS: ACETAMINOPHEN 1,000 MG/100 ML VIAL IV SCH ×4 (00:22→23:53)
[2022-10-10] MEDS: HYDROmorphone INJ 0.5 MG/0.5 ML SYR IV PRN ×2 (02:30→04:41)
[2022-10-10] MEDS ORDERED: HYDROmorphone INJ 0.5 MG/0.5 ML SYR IV STA (05:19)
[2022-10-10] MEDS: SODIUM CHLORIDE 0.9% 1000ML 1,000 ML IV SCH (07:50)
[2022-10-10] MEDS: MONTELUKAST SODIUM 10 MG TABLET PO SCH (07:54)
[2022-10-10] MEDS: PANTOprazole 40 MG TAB PO SCH (07:54)
[2022-10-10] MEDS: allopurinoL 300 MG TAB PO SCH (07:54)
[2022-10-10] MEDS: CYANOCOBALAMIN (B-12) 500 MCG TABLET PO SCH (07:54)
[2022-10-10] MEDS: MULTIVITAMIN TAB PO SCH (07:54)
[2022-10-10] MEDS: POTASSIUM CITRATE 10 MEQ TAB PO SCH (07:55)
[2022-10-10 08:44] LABS: Basophils # (auto) 0.08 K/uL (0-0.2); Basophils % (auto) 0.7 %; Eosinophils % (auto) 1.8 %; Hematocrit (blood only) 41.5 % (42.0-52.0); Hemoglobin 14.7 g/dl (14.0-18.0); Immature Granulocytes # (auto) 0.03 K/uL (0.01-0.20); Immature Granulocytes % (auto) 0.3 %; Lymphocytes # (auto) 0.97 K/uL (1.2-3.4); Lymphocytes % (auto) 8.7 %; Mean Corpuscular Hemoglobin 32.6 pg (25.0-34.0); Mean Corpuscular Hgb Conc 35.4 g/dL (32.0-36.0); Mean Platelet Volume 9.1 fL (9.4-12.4); Monocytes # (auto) 1.16 K/uL (0.11-0.59); Monocytes % (auto) 10.4 %; Neutrophils # (auto) 8.68 K/uL (1.40-6.50); Neutrophils % (auto) 78.1 %; Platelet Count 226 K/uL (130-400); RDW Coefficient of Variation 12.8 % (11.5-14.5); RDW Standard Deviation 43.1 fL (36.4-46.3); Red Blood Count 4.51 M/uL (4.70-6.10); White Blood Count 11.12 K/ul (4.8-10.8)
[2022-10-10 08:57] LABS: BUN Creatinine Ratio 15.6 (10-20); Calcium 8.5 mg/dl (8.5-10.1); Creatinine Clr Calc Pharmacy 64.8 ml/min; Est GFR (African American) 54.9 ml/min; Est GFR (Non-African American) 47.3 ml/min; Potassium 4.2 mmol/L (3.5-5.1)
--- NOTE | 2022-10-10 09:17 | XRay Report ---
XR KUB/Abdomen 1 view CLINICAL HISTORY: left proximal ureteral stone TECHNIQUE: 1 view of the abdomen was obtained. Comparison: Comparison is made to abdomen radiograph 02/08/[address] abdomen pelvis 10/09/2022 FINDINGS: Redemonstration of a left ureteral stone. Right renal stone is unchanged as well. Degenerative change s are seen in the visualized skeleton. The bowel gas pattern is nonobstructive. A moderate amount of stool is noted within the large bowel. IMPRESSION: Redemonstration of obstructive stone left proximal ureter. Nonobstructive right stone noted. ACT 112: Negative or not required by law. Electronically signed by: Dani Ferris M.D. 10/10/2022 9:16 AM
--- NOTE | 2022-10-10 09:17 | Urology Consultation ---
Date of Consultation October 10, 2022 Assessment & Plan (1) Acute left flank pain: (2) Ureterolithiasis: 51-year-old male with history of bilateral nephrolithiasis admitted for intractable left flank pain secondary to an obstructing 5 mm left proximal ureteral stone with hydronephrosis. Patient is afebrile and hemodynamically stable. Lab work reviewedcreatinine 1.67, WBC 11.12, hemoglobin 14.7. UA on arrival was not suspicious for infection. No urine culture pending. He was treated with 2g ceftriaxone in the ED. Continues to have left flank discomfort, currently well managed. Discussed options for stone management including surgical intervention with left ureteral stent placement while inpatient. We also discussed trial of passage vs outpatient ESWL or ureteroscopy if pain can be controlled for discharge to home. Ureteral stents were discussed in detail. Procedures and clinical courses reviewed. He reports poor stent tolerance in the past and greatly prefers ESWL. Will check KUB this a.m. for stone visibility. Keep n.p.o. for now. Continue supportive care. Patient reassessed in conjunction with Dr. Chow at 1030. Left proximal ureteral stone is visible on KUB. Patient reports his discomfort is about the same as earlier, no worsening. We reviewed options for stone management again. After discussion, he prefers to pursue outpatient ESWL. Okay to discharge from perspective when medically stable. Recommend discharge with tamsulosin, Pyridium, and pain management. Will arrange outpatient follow-up with our service for definitive stone management. History of Present Illness Attending Physician: Davon Land MD History of Present Illness This is a 51-year-old male with history of bilateral nephrolithiasis who presented to the emergency department on 10/09/2022 with complaint of left flank pain with associated nausea. On arrival to ED, he was afebrile and hemodynamically stable. Lab work independently reviewed. CBC showed no leukocytosis, Hgb 14.7. Chemistry showed a creatinine of 1.43, electrolytes within normal limits. Urinalysis unremarkable. CT A/P wo con reviewed and notable for a 5 mm stone in the left proximal ureter with associated hydronephrosis and hydroureter. He was treated with IV fluids, 2 g of IV ceftriaxone, ondansetron, ketorolac and hydromorphone in ED. Patient remained very uncomfortable after multiple doses of IV pain medication and was admitted to the hospital medicine service for further management. Urology is consulted for evaluation of obstructive nephrolithiasis. Patient is known to our service, follows with Dr. Thapa for nephrolithiasis. Patient seen and examined at bedside this morning. He is awake, alert and sitting up in bed. He reports improvement in left flank discomfort since arrival, currently 34 out of 10. He is voiding spontaneously without difficulty. No dysuria or hematuria. No nausea or vomiting. No fever or chills. He is NPO. Prior history of ESWL. He reports poor tolerance of stent in the past. Allergies Allergy/AdvReac Type Severity Reaction Status Date / Time morphine Allergy Intermediate itchy/anxio Verified 10/09/22 19:14 us Home Medications Medication Instructions Recorded Confirmed Type multivitamin 1 tab PO QAM 05/17/19 10/09/22 History cholecalciferol (vitamin D3) 50 50 mcg PO DAILY #90 caps 07/03/20 10/09/22 Rx mcg (2,000 unit) capsule mecobalamin (vitamin B12) 1,000 1,000 mcg PO DAILY #90 tabs 07/03/20 10/09/22 Rx mcg chewable tablet albuterol sulfate 90 mcg/actuation 2 puff inhalation Q4H PRN 06/03/21 10/09/22 Rx aerosol inhaler (ProAir HFA) shortness of breath or wheezing #1 inhaler allopurinol 300 mg tablet 300 mg PO QAM #30 tabs 04/21/22 10/09/22 Rx montelukast 10 mg tablet 10 mg PO QAM #30 tabs 04/21/22 10/09/22 Rx omeprazole 20 mg capsule,delayed 20 mg PO QAM #30 caps 04/21/22 10/09/22 Rx release potassium citrate 10 mEq (1,080 10 meq PO DAILY 90 days #90 tabs 04/29/22 10/09/22 Rx mg) tablet,extended release lisinopril 20 mg tablet 20 mg PO QAM #90 tabs 06/09/22 10/09/22 Rx chlorpheniramine maleate 4 mg 4 mg PO QAM 10/09/22 10/09/22 History tablet Patient History Medical History Acute kidney injury Asthma Diabetes Diverticulitis of colon with perforation (07/19/13) Eosinophilic esophagitis Gout HTN (hypertension) Left flank pain Nephrolithiasis Nephrolithiasis PVCs (premature ventricular contractions) Right ureteral stone Vitamin D insufficiency Surgical History H/O colostomy History of colostomy Hx of hernia repair S/P colostomy takedown (10/07/13) S/P partial colectomy Family History Uncle Pancreatic cancer Colorectal cancer Prostate cancer Family/Other Colorectal cancer Father Myocardial infarction Pancreatic cancer Coronary heart disease Hypertension Grandfather (Maternal) Myocardial infarction Grandmother (Maternal) Pancreatic cancer Other Cancer Denies family history of Ovarian cancer Breast cancer Social History Smoking Status: Never smoker Second Hand Exposure: No; Do You Dip or Chew Tobacco: No; Tobacco Cessation Education Requested by Patient: No Hx Alcohol Use: No Hx Substance Use: No Preferred Language: Ghanaian Communication Ability: Effective Accounting Tutor Required: No Beliefs That Will Affect Care: None marital status: Current Living Situation: Parent current occupational status: employed 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 [employer] Other Information That Helps Us Care for You: No Feels Safe at Home: Yes Safety Concerns: Feels Safe At This Time Childhood Exposure to Second-Hand Smoke: No Dental Care, Regularly: Yes Physical Activity Frequency: 1-2 Times per Week Physical Activity Frequency Comment: regularly Seatbelt Use: always Sunscreen Use: Yes Assistive Devices: None Review of Systems Review of Systems: All systems reviewed & are unremarkable except as noted in HPI & below Physical Exam Constitutional: well developed and well nourished; no acute distress and not ill appearing Respiratory: normal respiratory effort; no respiratory distress and no labored breathing Gastrointestinal (Abdomen): Inspection/Auscultation: abdomen normal to inspection; abdomen not distended Percussion/Palpation: abdomen soft; abdomen nontender Musculoskeletal: Head/Neck/Chest: normocephalic and head atraumatic Neurologic: moves all extremities and awake Psychiatric: Orientation: alert and oriented x 3 Genitourinary: no CVA tenderness Results & Data ([facility]) Vital Signs (Past 12 Hours) Vital Signs Temp Pulse Resp BP BP Pulse Ox O2 Del Method 10/10/22 07:25 37.3 C 89 18 128/78 95 Room Air 10/09/22 23:15 36.8 C 87 16 122/79 97 Room Air 10/09/22 22:00 80 17 149/106 H 94 Room Air PG Care Time/CCT Total # of Minutes Spent Total Time Spent with Patient: Total time spent is greater than 50% in coordination of care (as documented) at patient's floor/unit and/or counseling patient: Coding Level of Care Code INP/OBS CONSULT LVL 3, 45 MIN Diagnoses Acute left flank pain R10.9 Ureterolithiasis N20.1
[2022-10-10] MEDS: diphenhydrAMINE Capsule 25 MG CAP PO SCH (09:25)
[2022-10-10] MEDS: HYDROmorphone INJ 1 MG/ML SYRINGE IV PRN ×5 (11:03→22:51)
[2022-10-10] MEDS ORDERED: fentaNYL citrate 100 MCG/2 ML VIAL ONE (17:40)
[2022-10-10] MEDS ORDERED: MIDAZOLAM HCL 1 MG/ML 2ML VIAL ONE (17:40)
[2022-10-10] MEDS ORDERED: PROPOFOL IV EMULSION 10 MG/ML 20 ML VIAL IV ONE (17:40)
[2022-10-10] MEDS ORDERED: ONDANSETRON INJ 2 MG/ML 2 ML VIAL ONE (17:43)
[2022-10-10] MEDS ORDERED: LIDOCAINE 2% MPF LOCAL 5 ML VIAL INFIL ONE (17:43)
--- NOTE | 2022-10-10 17:51 | Anesthesiology Consultation ---
Date of Service October 10, 2022 Assessment & Plan Chart Review Chart Review: Acceptable Risk for Surgery and Patient NOT seen in Pre Admission Testing History Surgery Operation Date: 10/10/22 11:00 Proposed Procedures p Cystoscopy, Left Ureteral Stent Insertion - Emre Chow MD Height/Weight Height: 5 ft 8 in Weight: 111.3 kg Allergies Allergy/AdvReac Type Severity Reaction Status Date / Time morphine Allergy Intermediate itchy/anxio Verified 10/09/22 19:14 us Medications Home Medications Medication Instructions Recorded Confirmed Last Taken multivitamin 1 tab PO QAM 05/17/19 10/09/22 10/09/22 cholecalciferol (vitamin D3) 50 50 mcg PO DAILY #90 caps 07/03/20 10/09/22 10/09/22 mcg (2,000 unit) capsule mecobalamin (vitamin B12) 1,000 1,000 mcg PO DAILY #90 tabs 07/03/20 10/09/22 10/09/22 mcg chewable tablet albuterol sulfate 90 mcg/actuation 2 puff inhalation Q4H PRN 06/03/21 10/09/22 Unknown aerosol inhaler (ProAir HFA) shortness of breath or wheezing #1 inhaler allopurinol 300 mg tablet 300 mg PO QAM #30 tabs 04/21/22 10/09/22 10/09/22 montelukast 10 mg tablet 10 mg PO QAM #30 tabs 04/21/22 10/09/22 10/09/22 omeprazole 20 mg capsule,delayed 20 mg PO QAM #30 caps 04/21/22 10/09/22 10/09/22 release potassium citrate 10 mEq (1,080 10 meq PO DAILY 90 days #90 tabs 04/29/22 10/09/22 10/09/22 mg) tablet,extended release lisinopril 20 mg tablet 20 mg PO QAM #90 tabs 06/09/22 10/09/22 10/09/22 chlorpheniramine maleate 4 mg 4 mg PO QAM 10/09/22 10/09/22 10/09/22 tablet Active Medications Generic Name Dose Route Start Last Admin Trade Name Freq PRN Reason Stop Dose Admin Allopurinol 300 mg 10/10/22 09:00 10/10/22 07:54 Allopurinol 300 Mg Tab PO 11/09/22 08:59 300 mg QAM ROSA Administration Cyanocobalamin 1,000 mcg 10/10/22 09:00 10/10/22 07:54 Cyanocobalamin (B-12) 500 Mcg Tablet PO 11/09/22 08:59 1,000 mcg DAILY ROSA Administration Diphenhydramine HCl 25 mg 10/10/22 09:00 10/10/22 09:25 Diphenhydramine Capsule 25 Mg Cap PO 11/09/22 08:59 25 mg QAM ROSA Administration Hydromorphone HCl 1 mg 10/10/22 05:11 10/10/22 15:37 Hydromorphone Inj 1 Mg/Ml Syringe IV 10/23/22 23:19 1 mg Q2H PRN Administration Brkthru Pain (8,9,10) Acetaminophen 1,000 mg in 100 mls @ 400 mls/hr 10/10/22 00:00 10/10/22 15:56 Ofirmev IV 10/13/22 00:00 Infused Q8H ROSA Infusion Montelukast Sodium 10 mg 10/10/22 09:00 10/10/22 07:54 Montelukast Sodium 10 Mg Tablet PO 11/09/22 08:59 10 mg QAM ROSA Administration Multivitamins 1 tab 10/10/22 09:00 10/10/22 07:54 Multivitamin Tab PO 11/09/22 08:59 1 tab QAM ROSA Administration Pantoprazole Sodium 40 mg 10/10/22 09:00 10/10/22 07:54 Pantoprazole 40 Mg Tab PO 11/09/22 08:59 40 mg QAM ROSA Administration Potassium Citrate 10 meq 10/10/22 09:00 10/10/22 07:55 Potassium Citrate 10 Meq Tab PO 11/09/22 08:59 10 meq DAILY ROSA Administration Past Medical History Medical History Acute kidney injury Asthma Diabetes Diverticulitis of colon with perforation (07/19/13) Eosinophilic esophagitis Gout HTN (hypertension) Left flank pain Nephrolithiasis Nephrolithiasis PVCs (premature ventricular contractions) Right ureteral stone Vitamin D insufficiency Past Family History Family History Uncle Pancreatic cancer Colorectal cancer Prostate cancer Family/Other Colorectal cancer Father Myocardial infarction Pancreatic cancer Coronary heart disease Hypertension Grandfather (Maternal) Myocardial infarction Grandmother (Maternal) Pancreatic cancer Other Cancer Denies family history of Ovarian cancer Breast cancer Past Surgical History Surgical History H/O colostomy History of colostomy Hx of hernia repair S/P colostomy takedown (10/07/13) S/P partial colectomy Social History Smoking Status: Never smoker Do You Dip or Chew Tobacco: No Hx Alcohol Use: No Hx Substance Use: No Physical Exam Vital Signs Last Vital Signs Temp 37.3 C 10/10/22 15:09 Pulse 79 10/10/22 15:09 Resp 17 10/10/22 15:09 BP 119/75 10/10/22 15:09 Pulse Ox 96 10/10/22 15:09 O2 Del Method Room Air 10/10/22 15:09 Testing Laboratory Results 10/10/22 08:14 10/10/22 08:14 Urine Color Yellow 10/09/22 16:50 Urine Appearance Clear (Clear) 10/09/22 16:50 Urine pH 8.5 (4.5-7.5) H 10/09/22 16:50 Ur Specific [place]mer 1.017 (1.000-1.030) 10/09/22 16:50 Urine Protein Negative (Negative) 10/09/22 16:50 Urine Glucose (UA) Negative (Negative) 10/09/22 16:50 Urine Ketones Negative (Negative) 10/09/22 16:50 Urine Nitrite Negative (Negative) 10/09/22 16:50 Ur Leukocyte Esterase Negative (Negative) 10/09/22 16:50 10/10/22 10/10/22 10/10/22 17:20 12:16 08:08 POC Glucose 96 102 H 120 H
[2022-10-10] MEDS ORDERED: ceFAZolin 2,000 MG/15 ML IV PUSH IV ONE (18:01)
[2022-10-10] MEDS ORDERED: ePHEDrine sulfate 50 MG/ML AMP IV PRN (18:02)
[2022-10-10] MEDS ORDERED: ATROPINE SULFATE 0.1 MG/ML 10ML SYR IV PRN (18:02)
[2022-10-10] MEDS ORDERED: fentaNYL citrate 100 MCG/2 ML VIAL IV PRN (18:02)
[2022-10-10] MEDS ORDERED: ONDANSETRON INJ 2 MG/ML 2 ML VIAL IV PRN (18:02)
[2022-10-10] MEDS ORDERED: ceFAZolin 2000MG 2,000 MG/15 ML SYR IV ONE (18:15)
--- NOTE | 2022-10-10 18:39 | Operative Report ---
PG Post Operative Report Pre & Post Diagnosis Operation Date: 10/10/22 11:00 Pre-Op Diagnosis: OBSTRUCTIVE NEPHROLITHIASIS Post-Op Diagnosis: OBSTRUCTIVE NEPHROLITHIASIS I identified the patient and participated in the time-out.: Yes Procedure Operation Date: 10/10/22 11:00 Actual Procedures p Cystoscopy, Left Ureteral Stent Insertion(Left) - Emre Chow MD Surgeon Emre Chow MD Annealing Furnace Operator None Estimated Blood Loss 0 Findings Consistent with Post-Op Diagnosis Specimens None Drains 6 Argentine by 26 cm double-J ureteral stent in the left ureter. Anesthesia Type MAC Complications none Disposition Accompanied Patient To Recovery: Yes Disposition: Recovery Room Indications This is a 51-year-old male who recently presented to the hospital with left-s ided flank pain. He was found on CT scan to have an obstructing left ureteral stone. Due to intractable pain he is brought to the OR today for left ureteral stent placement. Description of Procedure The patient was identified in the holding area and informed consent was confirmed. He was marked on the left side, then was taken to the operating room where anesthesia was initiated. He was placed in the dorsal lithotomy position with all pressure points appropriately padded. He was prepped and draped in the usual sterile fashion and a preoperative timeout was performed. A well-lubricated cystoscope was inserted per urethra and panendoscopy was performed. The pendulous urethra was normal with no strictures or mucosal abnormalities. The prostate was of normal size. His bladder appeared grossly normal with no tumors or stones appreciated. Ureteral orifices were in orthotopic position bilaterally. A 5 Argentine open-ended catheter was inserted and used to intubate the left ureteral orifice. A retrograde pyelogram was performed using Cystografin. The distal ureter was normal in course and caliber. There is a narrowed area, likely at the location of the stone. There was mild hydronephrosis on the left side. A 0.038 inch zip wire was advanced up to the kidney under fluoroscopic guidance. Over the wire, a 6 Argentine x 26 cm double-J ureteral stent was advanced. When the wire was removed, there was a good curl in the kidney under fluoroscopic guidance. The cystoscopic graspers were used to establish a good curl in the bladder and locate the upper curl in the renal pelvis. At this point the bladder was drained and all instrumentation was removed. The patient was then awakened from anesthesia and was brought to the PACU in stable condition. I attest to the content of the Intraoperative Record and any orders documented therein. Any exceptions are noted below.
--- NOTE | 2022-10-10 18:51 | Fluoroscopy Report ---
INTRAOPERATIVE RADIOGRAPHS CLINICAL HISTORY: Left ureteral stent placement. Fluoro time: 9 seconds Exposure: 2.97 mGy FINDINGS: 2 spot fluoroscopic views of the left abdomen are correlated with abdominal CT dated 023. The initial image shows a wire in the left renal pelvis. Contrast is seen within an external pel vis. The second image shows the proximal end only left ureteral stent in place. IMPRESSION: Intraoperative images from a left ureteral stent placement procedure as above. Electronically signed by: Apollo Conrad M.D. 10/10/2022 6:49 PM
--- NOTE | 2022-10-10 20:31 | Anesthesiology Progress Note ---
Date of Service October 10, 2022 Anesthesia Post Procedure Vital Signs Vital Signs: Temp Pulse Pulse Resp BP BP Pulse Ox 10/10/22 19:41 37 C 77 20 129/84 94 10/10/22 19:15 37.2 C 83 18 127/95 96 10/10/22 18:50 90 16 131/79 96 10/10/22 18:42 36.6 C 98 H 18 115/75 95 10/10/22 17:48 37.3 C 90 20 129/82 96 10/10/22 15:09 37.3 C 79 17 119/75 96 10/10/22 07:25 37.3 C 89 18 128/78 95 10/09/22 23:15 36.8 C 87 16 122/79 97 10/09/22 22:00 80 17 149/106 H 94 O2 Del Method 10/10/22 19:41 Room Air 10/10/22 19:15 Room Air 10/10/22 18:50 Room Air 10/10/22 18:42 Room Air 10/10/22 17:48 Room Air 10/10/22 15:09 Room Air 10/10/22 07:25 Room Air 10/09/22 23:15 Room Air 10/09/22 22:00 Room Air Pain Intensity Left Flank: Pain Intensity: 3 Transfer of Care Handoff Completed per policy Notes Mental Status: alert / awake / arousable and participated in evaluation Patient Amnestic to Procedure: Yes Nausea / Vomiting: adequately controlled Pain: adequately controlled Airway Patency, RR, SpO2: stable & adequate BP & HR: stable & adequate Hydration State: stable & adequate Anesthetic Complications: no major complications apparent and Pt Satisfied with anesthetic care
--- NOTE | 2022-10-10 20:33 | Billing Data ---
Date of Service October 10, 2022 Attending addendum: I have physically seen this patient, have supervised the medical residents activities, and agree with the H&P unless as otherwise noted. Assessment and Plan: 5 mm left proximal ureteral calculus/left hydroureteronephrosis- Follow urine culture sensitivity N.p.o. Ceftriaxone 1 g IV daily Acetaminophen 650 mg p.o. every 6 hours as needed mild pain or fever Dilaudid IV as noted as needed breakthrough pain Avoid NSAIDs due to SAQIB Received 1 L normal saline in the ED Continue NSS 125 mils per hour x2 more liters Consult urology Acute kidney injury- Creatinine 1.43 on admission, with base 1.00 Continue IV fluids and recheck laboratories in a.m. Hold lisinopril GERD/eosinophilic esophagitis- Continue pantoprazole Gout- Continue allopurinol Diabetes mellitus- Glucose 112 on admission Diet controlled If blood sugars elevated routine labs in the morning, will place on Accu-Cheks Asthma- Continue montelukast Albuterol HFA 2 puffs 4 times daily as needed Remaining orders and notations as noted Coding Level of Care Code 14826 INT INP/OBS CARE 2/55MIN
[2022-10-10] MEDS ORDERED: TAMSULOSIN HCL 0.4 MG CAP PO SCH (21:00)
[2022-10-11] MEDS ORDERED: ONDANSETRON 4 MG OD TAB PO PRN
--- NOTE | 2022-10-11 01:00 | Hospitalist Progress Note ---
Date of Service October 10, 2022 Assessment & Plan (1) Nephrolithiasis: Plan: 51-year-old male with history of nephrolithiasis s/p 8+ lithotripsies in the past and prior stenting (all removed), ENEIDA, type 2 diabetes, hypertension, asthma, gout who presented to [facility] for evaluation of L flank pain, subsequently found to have an obstructing 5mm LEFT sided ureteral stone. Hydroureteronephrosis secondary to Obstructing Nephrolithiasis - L Proximal Ureter Patient is status post multiple lithotripsies and stenting in the past; last time in [id number] per his report CTAP demonstrating 5 mm obstructing stone within the left proximal ureter with associated hydronephrosis and hydroureter; also noted more nonobstructing right- sided nephroliths and postsurgical changes of a prior bowel resection Urology consulted in the ED: Appreciate procedural expertise, need for lithotripsy? NPO @ midnight. Flomax scheduled Pain: Scheduled Tylenol; Dilaudid for breakthrough pain -- hold on further NSAIDs/Toradol for now in setting of SAQIB 10/10-urology plan to do ESWL as outpatient noted Patient requiring IV Dilaudid for pain control Recheck urology to see if patient will agree to stent placement in the interim SAQIB Suspect post renal in the setting of known hydroureteronephrosis on the left side Continue IVF Trend BMP Avoid nephrotoxic medications (3) Acid reflux: Plan: History of GERD and eosinophilic esophagitis Continue pantoprazole (4) Gout: Plan: Continue allopurinol (5) HTN (hypertension): Plan: Hold lisinopril until postoperative (6) Diabetes mellitus: Plan: Last A1c at 6.6% in 07/2022 Not on home medications Monitor ACHS sugars; if persistently above 140, can consider SSI Resume lisinopril when appropriate (7) Asthma: Plan: Stable, no acute needs Albuterol as needed Continue montelukast (2) Ureterolithiasis: (3) Acute kidney injury: (4) HTN (hypertension): Admission and Anticipated Discharge Date Admission Date: October 09, 2022 Subjective Patient still reports intermittent pain from renal calculi requiring IV narcotic for pain control Physical Exam Physical Exam: Head and ENT no thyroid enlargement trachea midline Cardiovascular S1-S2 are normal no S3 Lungs bilateral air entry fair no wheezing Abdomen soft nondistended positive bowel sounds no rebound tenderness Extremity shows trace edema Neurologically no focal deficits Skin shows no rash no cyanosis Results & Data Results & Data ([facility]) Vital Signs (Past 12 Hours) Vital Signs Temp Pulse Pulse Resp BP Pulse Ox O2 Del Method 10/10/22 22:17 37.1 C 90 16 118/66 95 Room Air 10/10/22 21:10 37.6 C 86 18 117/71 94 Room Air 10/10/22 20:15 36.9 C 98 H 16 145/81 H 97 Room Air 10/10/22 19:41 37 C 77 20 129/84 94 Room Air 10/10/22 19:15 37.2 C 83 18 127/95 96 Room Air 10/10/22 18:50 90 16 131/79 96 Room Air 10/10/22 18:42 36.6 C 98 H 18 115/75 95 Room Air 10/10/22 17:48 37.3 C 90 20 129/82 96 Room Air 10/10/22 15:09 37.3 C 79 17 119/75 96 Room Air Laboratory Results Short CBC 10/10/22 Range/Units 08:14 WBC 11.12 H (4.8-10.8) K/ul Hgb 14.7 (14.0-18.0) g/dl Hct 41.5 L (42.0-52.0) % Plt Count 226 (130-400) K/uL BMP 10/10/22 08:14 Sodium 138 Potassium 4.2 Chloride 106 Carbon Dioxide 26 BUN 26 H Creatinine 1.67 H Glucose 126 H Calcium 8.5 PG Care Time/CCT Total # of Minutes Spent Total Time Spent with Patient: Total time spent is greater than 50% in coordination of care (as documented) at patient's floor/unit and/or counseling patient: Coding Level of Care Code 96237 SUB INP/OBS CARE 2/35MIN Diagnoses Nephrolithiasis N20.0 Ureterolithiasis N20.1 Acute kidney injury N17.9 HTN (hypertension) I10
[2022-10-11] MEDS: HYDROmorphone INJ 1 MG/ML SYRINGE IV PRN ×2 (01:08→04:07)
[2022-10-11 07:44] LABS: Hematocrit (blood only) 43.4 % (42.0-52.0); Hemoglobin 15.1 g/dl (14.0-18.0); Mean Corpuscular Hemoglobin 32.4 pg (25.0-34.0); Mean Corpuscular Hgb Conc 34.8 g/dL (32.0-36.0); Mean Corpuscular Volume 93.1 fL (80.0-100.0); Mean Platelet Volume 9.5 fL (9.4-12.4); Nucleated RBC # (auto) 0.02 K/uL (0-0.12); Nucleated RBC % (auto) 0.2 %; Platelet Count 228 K/uL (130-400); RDW Coefficient of Variation 13.1 % (11.5-14.5); RDW Standard Deviation 44.6 fL (36.4-46.3); Red Blood Count 4.66 M/uL (4.70-6.10); White Blood Count 9.08 K/ul (4.8-10.8)
[2022-10-11] MEDS: ACETAMINOPHEN 1,000 MG/100 ML VIAL IV SCH (07:47)
[2022-10-11] MEDS: diphenhydrAMINE Capsule 25 MG CAP PO SCH (07:51)
[2022-10-11] MEDS: MULTIVITAMIN TAB PO SCH (07:51)
[2022-10-11] MEDS: CYANOCOBALAMIN (B-12) 500 MCG TABLET PO SCH (07:51)
[2022-10-11] MEDS: POTASSIUM CITRATE 10 MEQ TAB PO SCH (07:51)
[2022-10-11] MEDS: allopurinoL 300 MG TAB PO SCH (07:51)
[2022-10-11] MEDS: PANTOprazole 40 MG TAB PO SCH (07:52)
[2022-10-11] MEDS: MONTELUKAST SODIUM 10 MG TABLET PO SCH (07:52)
[2022-10-11 08:28] LABS: Calcium 9.2 mg/dl (8.5-10.1); Potassium 4.2 mmol/L (3.5-5.1)
[2022-10-11 08:33] LABS: BUN Creatinine Ratio 14.5 (10-20); Creatinine Clr Calc Pharmacy 74.6 ml/min; Est GFR (African American) 65.1 ml/min; Est GFR (Non-African American) 56.1 ml/min
--- NOTE | 2022-10-11 09:04 | Urology Progress Note ---
Date of Service October 11, 2022 Assessment & Plan (1) Ureterolithiasis: (2) Acute kidney injury: Plan Doing well s/p left ureteral stent placement 10/10. He should be appropriate for discharge home today. Kidney function has improved and he should be able to tolerate a diet, normal. He already has an appointment scheduled for outpatient follow-up with urology, at which point we will coordinate definitive stone management. Admission and Anticipated Discharge Date Admission Date: October 09, 2022 Subjective Feeling well, flank pain improved s/p left ureteral stent on 10/10/2022. Not having too much stent pain, reports mild burning with urination. Tolerating diet Has been ambulating little bit Eager to go home today Physical Exam Physical Exam: Well-appearing, NAD Results & Data ([facility]) Vital Signs (Past 12 Hours) Vital Signs Temp Pulse Resp BP Pulse Ox O2 Del Method 10/11/22 08:20 37.2 C 10/11/22 07:35 37.9 C H 90 16 129/82 96 Room Air 10/11/22 02:39 36.9 C 90 16 108/65 96 Room Air 10/10/22 22:17 37.1 C 90 16 118/66 95 Room Air 10/10/22 21:10 37.6 C 86 18 117/71 94 Room Air PG Care Time/CCT Total # of Minutes Spent Total Time Spent with Patient: Total time spent is greater than 50% in coordination of care (as documented) at patient's floor/unit and/or counseling patient: Coding Level of Care Code 80022 SUB INP/OBS CARE 25MIN Diagnoses Ureterolithiasis N20.1 Acute kidney injury N17.9
[2022-10-11] MEDS ORDERED: PHENAZOPYRIDINE HCL 200 MG TAB PO PRN (09:29)
--- NOTE | 2022-10-11 18:57 | Discharge Summary ---
Date of Service October 11, 2022 Admission HPI Per Admitting Provider 51-year-old male with history of nephrolithiasis s/p 8+ lithotripsies in the past and prior stenting (all removed), ENEIDA, type 2 diabetes, hypertension, asthma, gout who presented to [facility] for evaluation of L flank pain This began the day prior to admission and has been associated with nausea. Radiates to LLQ. No f/c/NS. In the ED, patient was found to be hemodynamically stable with normal blood pressure and heart rate. Labs demonstrating no leukocytosis, mild SAQIB with BUN 23/creatinine 1.43 (compared to 17/1.0 on 09/22), normal LFTs, normal lipase. Urinalysis demonstrating elevated urine pH at 8.5. CT of the abdomen and pelvis demonstrating 5 mm obstructing stone within the left proximal ureter with associated hydronephrosis and hydroureter; also noted more nonobstructing right- sided nephroliths and postsurgical changes of a prior bowel resection. He was given Zofran, Toradol, NSS. ED physician spoke with urologist on-call, Dr. Duran. Principal Diagnosis Hydroureteronephrosis secondary to Left ureteral Nephrolithiasis Discharge Exam Head and ENT no thyroid enlargement trachea midline Cardiovascular S1-S2 are normal no S3 Lungs bilateral air entry fair no wheezing Abdomen soft nondistended positive bowel sounds no rebound tenderness Extremity shows trace edema Neurologically no focal deficits Skin shows no rash no cyanosis Discharge Data Allergies Allergy/AdvReac Type Severity Reaction Status Date / Time morphine Allergy Intermediate itchy/anxio Verified 10/09/22 19:14 us Consultations 10/09/22 21:39 Consult Urology Routine Procedures Performed Operation Date: 10/10/22 11:00 Actual Procedures p Cystoscopy, Left Ureteral Stent Insertion(Left) - Emre Cheung MD Ordered Studies 10/09/22 15:57 CT abd pelvis wo con Stat 10/10/22 FL retrograde includes kub Routine Hospital Course (1) Nephrolithiasis: 51-year-old male with history of nephrolithiasis s/p 8+ lithotripsies in the past and prior stenting (all removed), ENEIDA, type 2 diabetes, hypertension, asthma, gout who presented to [facility] for evaluation of L flank pain, subsequently found to have an obstructing 5mm LEFT sided ureteral stone. Hydroureteronephrosis secondary to Left ureteral Nephrolithiasis Patient is status post multiple lithotripsies and stenting in the past; last t jose g in [id number] per his report CTAP demonstrating 5 mm obstructing stone within the left proximal ureter with associated hydronephrosis and hydroureter; also noted more nonobstructing right- sided nephroliths and postsurgical changes of a prior bowel resection Urology consulted in the ED: Appreciate procedural expertise, need for lithotripsy? NPO @ midnight. Flomax scheduled Pain: Scheduled Tylenol; Dilaudid for breakthrough pain -- hold on further NSAIDs/Toradol for now in setting of SAQIB 10/10-urology plan to do ESWL as outpatient noted Patient requiring IV Dilaudid for pain control Recheck urology to see if patient will agree to stent placement in the interim SAQIB Suspect post renal in the setting of known hydroureteronephrosis on the left side Continue IVF Trend BMP Avoid nephrotoxic medications (3) Acid reflux: Plan: History of GERD and eosinophilic esophagitis Continue pantoprazole (4) Gout: Plan: Continue allopurinol (5) HTN (hypertension): Plan: Hold lisinopril until postoperative (6) Diabetes mellitus: Plan: Last A1c at 6.6% in 07/2022 Not on home medications Monitor ACHS sugars; if persistently above 140, can consider SSI Resume lisinopril when appropriate (7) Asthma: Plan: Stable, no acute needs Albuterol as needed Continue montelukast (2) Ureterolithiasis: (3) Acute kidney injury: (4) HTN (hypertension): Total Time Total Time Spent Total Time Spent (In Minutes): 45 Discharge Plan Discharge Items Patient Disposition: Home - Self-Care Reason For Visit: OBSTRUCTIVE NEPHROLITHIASIS Discharge Diagnosis: obstructive nephrolithiasis Activity: Per Instructions section Lifting: Wait until after follow-up appointment Non-emergency contact: Primary Care Provider and Urologist Call non-emergency contact if: your symptoms worsen Follow-up/Referrals: Dashawn Torres MD [Primary Care Provider] - 10/23/22 11:20 am () Diet: Heart Healthy and Low Sodium (2gm) Diet Comment: drink about 3 litres fluid daily Addtl Attending Provider Instructions: ESWL - 1 week urology - 1 week take tylelol OTC 650 mg four times daily for 1 week Pending Studies at Discharge: No Stand-Alone Forms: My [facility] [address] [employer], Smoking Cessation Medications and DC Order Prescriptions: New phenazopyridine [Pyridium] 200 mg Tablet 200 mg PO Q8 MDD 600 mg PRN (Reason: pain) Qty: 30 0RF Rx Instructions: please send refills to PCP/ Dr cheung - urology medication can color urine - pt instructed tamsulosin 0.4 mg Capsule 0.4 mg PO HS Qty: 10 0RF Rx Instructions: please send refills to pcp Continued omeprazole 20 mg capsule,delayed release(DR/EC) 20 mg PO QAM Qty: 30 5RF montelukast 10 mg tablet 10 mg PO QAM Qty: 30 5RF allopurinol 300 mg tablet 300 mg PO QAM Qty: 30 5RF potassium citrate 10 mEq (1,080 mg) tablet extended release 10 meq PO DAILY 90 Days Qty: 90 3RF lisinopril 20 mg tablet 20 mg PO QAM Qty: 90 1RF cholecalciferol (vitamin D3) 50 mcg (2,000 unit) capsule 50 mcg PO DAILY Qty: 90 3RF Rx Instructions: with heaviest meal of the day mecobalamin (vitamin B12) 1,000 mcg tablet,chewable 1,000 mcg PO DAILY Qty: 90 3RF multivitamin tablet 1 tab PO QAM albuterol sulfate [ProAir HFA] 90 mcg/actuation HFA aerosol inhaler 2 puff INH Q4H PRN (Reason: shortness of breath or wheezing) Qty: 1 3RF chlorpheniramine maleate 4 mg Tablet 4 mg PO QAM Discharge Orders: Discharge Order (Routine); Ordered 10/11/22 Ordered By: Davon Land Admission Data Admit Date/Time: 10/09/22 21:39 Attending Provider: Davon Land Admit Provider: Ike Castellano Primary Care Provider: Dashawn Torres V. Other Providers: Farrukh Thapa ; Jefe Duran Other Interventions: Discharge Summary Assessment (RN) Last Done: 10/11/22 15:20 Coding Level of Care Code HOSP INP/OBS DISCH >30 MIN Diagnoses Nephrolithiasis N20.0 Ureterolithiasis N20.1 Acute kidney injury N17.9 HTN (hypertension) I10
== END 2022-10-11 16:08 | disposition home or self-care (01) | DRG 661 ==
LOC: ED 15:41 → SUATTDRO 21:39 → 3W 21:39